=== PATIENT | male | born 1965 | race American Indian/Alaskan Native ===

== ENCOUNTER 2017-10-01 14:38 | Emergency (ER) | payer MEDICARE ==
[2017-10-01 15:54] VITALS: BP 149/84
[2017-10-01] MEDS ORDERED: FLEXERIL PO ONE (18:17)
[2017-10-01] MEDS ORDERED: MOTRIN PO ONE (18:17)
[2017-10-01] MEDS ORDERED: NORCO 5/325 PO ONE (18:17)
--- NOTE | 2017-10-01 19:58 | Emergency Department Report ---
ED Back Pain/Injury HPI - General Chief Complaint: Back Pain/Injury Stated Complaint: BACK AND ELBOW INJURY Time Seen by Provider: 10/01/17 18:09 Source: patient Mode of arrival: Ambulatory Limitations: No Limitations - History of Present Illness Initial Comments: PT states this morning between 0300 and 0400, he was awake and putting away his clothes. PT states he was kneeling in front of the dresser. The dresser had drawers open and started to tip forward. PT states he reached up to stop the dresser from falling. PT states he felt a pop in his R elbow. PT states he could not hold the dresser and it fell down, striking his low back. PT c/o R elbow and low back pain. PT denies head injury of loc MD Complaint: back injury -: Sudden, hour(s) Similar Symptoms Previously: No Place: home Severity scale (0 -10): 9 Quality: sharp Consistency: constant Improves With: none Worsens With: movement, walking Context: other (dresser fell on pt ) Associated Symptoms: denies: difficulty walking, difficulty urinating, incontinence, fever/chills, headaches, nausea/vomiting - Related Data Previous Rx's Medication Instructions Recorded Last Taken Type Acetaminophen/Codeine [Tylenol #3] 1 tab PO Q6H PRN #12 tab 10/01/17 Unknown Rx Ibuprofen [Motrin] 600 mg PO Q8H PRN #15 tablet 10/01/17 Unknown Rx methOCARBAMOL [Robaxin TAB] 500 mg PO Q6H PRN #15 tablet 10/01/17 Unknown Rx Allergies Allergy/AdvReac Type Severity Reaction Status Date / Time quetiapine [From Seroquel] Allergy Unknown Verified 10/01/17 15:50 ED Review of Systems ROS: Stated complaint: BACK AND ELBOW INJURY Other details as noted in HPI Comment: All other systems reviewed and negative Constitutional: denies: fever, malaise ENT: denies: congestion Respiratory: denies: cough Gastrointestinal: denies: abdominal pain, nausea, vomiting Musculoskeletal: back pain, joint swelling Skin: denies: change in color Neurological: denies: headache, weakness ED Past Medical Hx - Past Medical History Previous Medical History?: Yes Hx Psychiatric Treatment: Yes (bipolar) Additional medical history: Bronchitis - Surgical History Past Surgical History?: Yes Additional Surgical History: abd surgery - Social History Smoking Status: Current Every Day Smoker Substance Use Type: Alcohol, Cocaine - Medications Home Medications: Home Medications Medication Instructions Recorded Confirmed Last Taken Type Acetaminophen/Codeine [Tylenol #3] 1 tab PO Q6H PRN #12 tab 10/01/17 Unknown Rx Ibuprofen [Motrin] 600 mg PO Q8H PRN #15 tablet 10/01/17 Unknown Rx methOCARBAMOL [Robaxin TAB] 500 mg PO Q6H PRN #15 tablet 10/01/17 Unknown Rx ED Physical Exam - General Limitations: No Limitations General appearance: alert, in no apparent distress - Head Head exam: Present: atraumatic, normocephalic, normal inspection - Eye Eye exam: Present: normal appearance, PERRL. Absent: conjunctival injection - ENT ENT exam: Present: normal exam, mucous membranes moist, normal external ear exam - Neck Neck exam: Present: normal inspection, full ROM, other (no post mid line C- spine tenderness ) - Respiratory Respiratory exam: Present: normal lung sounds bilaterally. Absent: respiratory distress, wheezes, rales, rhonchi, chest wall tenderness, accessory muscle use - Cardiovascular Cardiovascular Exam: Present: regular rate, normal rhythm, normal heart sounds - GI/Abdominal GI/Abdominal exam: Present: soft. Absent: tenderness - Extremities Exam Extremities exam: Present: full ROM, tenderness - Expanded Upper Extremity Exam Left General: Present: normal inspection Right Shoulder Exam: Present: normal inspection, full ROM. Absent: tenderness Upper Arm exam: Present: normal inspection Elbow exam: Present: full ROM, tenderness, swelling, ecchymosis, tenderness over radial head. Absent: deformity, erythema - Back Exam Back exam: Present: normal inspection, full ROM, tenderness, paraspinal tenderness, vertebral tenderness (to L spine ). Absent: CVA tenderness (R), CVA tenderness (L) - Neurological Exam Neurological exam: Present: alert, oriented X3, CN II-XII intact, normal gait - Expanded Neurological Exam Expanded Patient oriented to: Present: person, place, time Speech: Present: fluid speech Best Eye Response ([place]): (4) open spontaneously Best Motor Response (Thadde[place]): (6) obeys commands Best Verbal Response (Thaddeus): (5) oriented [place] Total: 15 - Psychiatric Psychiatric exam: Present: normal affect, normal mood - Skin Skin exam: Present: warm, dry, intact ED Course Vital Signs 10/01/17 15:50 Temperature 98.3 F Pulse Rate 61 Respiratory 18 Rate Blood Pressure 149/84 O2 Sat by Pulse 100 Oximetry - Reevaluation(s) Reevaluation #1: 10/01/17 21:41 PT aware of XR results. PT states pain decreased s/p pain medication. PT has no questions at this time. - Pulse Oximetry Interpretation Digit-Finger Initial Pulse Oximetry Readin Actions Taken: none ED Medical Decision Making - Radiology Data Radiology results: report reviewed XR R elbow- NAP XR L spine - no fx, large osteophyte - Differential Diagnosis fracture, strain, crush injury Critical Care Time: No Critical care attestation.: If time is entered above; I have spent that time in minutes in the direct care of this critically ill patient, excluding procedure time. ED Disposition Clinical Impression: Right elbow pain, Acute low back pain due to trauma Disposition: TO HOME OR SELFCARE Is pt being admited?: No Does the pt Need Aspirin: No Condition: Stable Instructions: Acute Low Back Pain (ED), Elbow Sprain (ED), Back Pain (ED) Additional Instructions: Follow up with PCP in 3-5 days have your BP rechecked at follow up No driving or alcohol after taking Robaxin or tylenol #3 Prescriptions: Acetaminophen/Codeine [Tylenol #3] 1 tab PO Q6H PRN #12 tab PRN Reason: Pain , Severe (7-10) Ibuprofen [Motrin] 600 mg PO Q8H PRN #15 tablet PRN Reason: Pain methOCARBAMOL [Robaxin TAB] 500 mg PO Q6H PRN #15 tablet PRN Reason: Muscle Spasm Referrals: PRIMARY LUCIAN, [Primary Care Provider] - 3-5 Days ОЛЕГ DREW MD [Staff Physician] - 3-5 Days EDWIN CAMPO MD [Staff Physician] - 3-5 Days Forms: Work/School Release Form(ED) Time of Disposition: 21:44
--- NOTE | 2017-10-01 20:39 | XRay Report ---
FINAL REPORT PROCEDURE: XR ELBOW 3+V RT TECHNIQUE: Three views of the right elbow are obtained HISTORY: RIGHT ELBOW pain sp injury COMPARISON: No prior studies are available for comparison. FINDINGS: Mild arthritic changes are suspected. No fracture or dislocation is seen. No joint effusion is seen. IMPRESSION: Mild arthritic changes are seen but no fracture is seen.
--- NOTE | 2017-10-01 21:25 | XRay Report ---
FINAL REPORT EXAM: XR SPINE LUMBOSACRAL 2-3V HISTORY: LOWER BACK pain sp injury TECHNIQUE: AP, lateral and coned-down views of the lumbar spine PRIORS: None. FINDINGS: The vertebral body heights are well maintained. Mild disc space narrowing at L4-L5 and L5-S1 is present. Large osteophytes are present anteriorly at L4 and L5 and of bridging osteophyte to the right at L2-L3 is noted. The alignment is normal. No evidence for spondylolysis or spondylolisthesis is seen. Pedicles are intact bilaterally at all levels. The paraspinal soft tissues are unremarkable. IMPRESSION: No acute abnormality in the lumbar spine. Degenerative disc changes at L4 through S1 and large osteophytes as noted.
== END 2017-10-01 22:02 | disposition home or self-care (01) ==
LOC: ED 14:38
DX: M25.521 Pain in right elbow (principal); M54.5 Low back pain; F17.200 Nicotine dependence, unspecified, uncomplicated; F14.10 Cocaine abuse, uncomplicated
CPT/HCPCS: 72100

== ENCOUNTER 2019-02-23 15:20 | Outpatient (CLI) | payer MEDICARE | END 2019-02-23 15:21 | disposition home or self-care (01) | LOC: LAB 15:20 | PROVIDERS: ATTEND Psychiatry & Neurology Psychiatry | DX: F33.3 Major depressive disorder, recurrent, severe with psychotic symptoms (principal) | CPT/HCPCS: 36415; 84443 ==

== ENCOUNTER 2019-02-24 10:39 | Emergency (ER) | payer MEDICARE ==
[2019-02-24 11:04] VITALS: BP 138/83
--- NOTE | 2019-02-24 11:05 | Emergency Department Report ---
Chief Complaint: Chest Pain Stated Complaint: COLLAR BONE /ARM /CHEST PAIN Time Seen by Provider: 02/24/19 11:01 - HPI History of Present Illness: Pt presents with a cough that began a month ago. green mucus production. no fever, no night sweats. pain on right collar bone with a "knot" pt states with frequent coughing he had "popping" sensation of his right collarbone substernal CP (+) smoker MSE screening note: Focused history and physical exam performed. Due to findings the following was ordered: CP protocol, CXR ED Disposition for MSE Condition: Stable
--- NOTE | 2019-02-24 11:34 | XRay Report ---
Chest 2 views: History: Chest pain. Findings: Normal cardiomediastinal silhouette. Trachea is midline. No consolidation, pneumothorax or pleural effusion. Impression: No acute cardiopulmonary findings.
--- NOTE | 2019-02-24 11:49 | Emergency Department Report ---
Upper Respiratory HPI - HPI Chief Complaint: Chest Pain Stated Complaint: COLLAR BONE /ARM /CHEST PAIN Time Seen by Provider: 02/24/19 11:01 Duration: 1 month URI Symptoms: Rhinorrhea: Yes, Sore Throat: No, Ear Pain: No, Cough: Yes, Shortness of Breath: No, Sick Contacts: No, Unable to Take Fluids: No, Urine Output Abnormal: No, Listless Behavior: No Other History: This is a 53-year-old female nontoxic, well nourished in appearance, no acute signs of distress presents to the ED with c/o of productive cough, rhinorrhea, nasal congestion x1 month. Patient stated that when he coughes causes him to have chest pain. PAtient also stated felt a popping sensation to right clavicle area. Patient describes productive cough as yellow mucus production. Patient otherwise denies any chest pain during rest. Patient denies any sick contact. Patient denies any recent travels, long car, recent hospital stays. Patient denies any calf pain or calf tenderness. Patient denies any chest pain, short of breath, fever, chills, nausea, vomiting, hemoptysis, numbness, tingling, headache or stiff neck. Patient denies any significant PMH. - Home Meds and Allergies Home Medications: Previous Rx's Medication Instructions Recorded Last Taken Type Acetaminophen/Codeine [Tylenol #3] 1 tab PO Q6H PRN #12 tab 10/01/17 Unknown Rx Ibuprofen [Motrin] 600 mg PO Q8H PRN #15 tablet 10/01/17 Unknown Rx methOCARBAMOL [Robaxin TAB] 500 mg PO Q6H PRN #15 tablet 10/01/17 Unknown Rx Azithromycin [Zithromax Z-FAHAD] 250 mg PO DAILY #6 tablet 02/24/19 Unknown Rx Benzonatate [Tessalon Perle] 100 mg PO Q8H PRN #20 capsule 02/24/19 Unknown Rx Ibuprofen [Motrin] 600 mg PO Q8H PRN #20 tablet 02/24/19 Unknown Rx Prednisone [predniSONE 10 mg 10 mg PO .TAPER #1 tab.ds.pk 02/24/19 Unknown Rx (6-Day Pack, 21 Tabs)] Allergies/Adverse Reactions: Allergies Allergy/AdvReac Type Severity Reaction Status Date / Time quetiapine [From Seroquel] Allergy Unknown Verified 10/01/17 15:50 ED Review of Systems ROS: Stated complaint: COLLAR BONE /ARM /CHEST PAIN Other details as noted in HPI Constitutional: denies: chills, fever Eyes: denies: eye pain, eye discharge, vision change ENT: congestion. denies: ear pain, throat pain Respiratory: cough. denies: shortness of breath, wheezing Cardiovascular: denies: chest pain, palpitations Endocrine: no symptoms reported Gastrointestinal: denies: abdominal pain, nausea, diarrhea Genitourinary: denies: urgency, dysuria Musculoskeletal: denies: back pain, joint swelling, arthralgia Skin: denies: rash, lesions Neurological: denies: headache, weakness, paresthesias Psychiatric: denies: anxiety, depression Hematological/Lymphatic: denies: easy bleeding, easy bruising ED Past Medical Hx - Past Medical History Hx Psychiatric Treatment: Yes (bipolar) Additional medical history: Bronchitis, thyroid? - Surgical History Additional Surgical History: abd surgery - Social History Smoking Status: Current Every Day Smoker Substance Use Type: None - Medications Home Medications: Home Medications Medication Instructions Recorded Confirmed Last Taken Type Acetaminophen/Codeine [Tylenol #3] 1 tab PO Q6H PRN #12 tab 10/01/17 Unknown Rx Ibuprofen [Motrin] 600 mg PO Q8H PRN #15 tablet 10/01/17 Unknown Rx methOCARBAMOL [Robaxin TAB] 500 mg PO Q6H PRN #15 tablet 10/01/17 Unknown Rx Azithromycin [Zithromax Z-FAHAD] 250 mg PO DAILY #6 tablet 02/24/19 Unknown Rx Benzonatate [Tessalon Perle] 100 mg PO Q8H PRN #20 capsule 02/24/19 Unknown Rx Ibuprofen [Motrin] 600 mg PO Q8H PRN #20 tablet 02/24/19 Unknown Rx Prednisone [predniSONE 10 mg 10 mg PO .TAPER #1 tab.ds.pk 02/24/19 Unknown Rx (6-Day Pack, 21 Tabs)] ED Bronchiolitis Physical Exam - Exam General: Vital signs noted. No distress. Alert and acting appropriately. Neurologic: Alert and oriented, no deficits. Musculoskeletal: Unremarkable. ED Physical Exam - General Limitations: No Limitations General appearance: alert, in no apparent distress - Head Head exam: Present: atraumatic, normocephalic - Eye Eye exam: Present: normal appearance - ENT ENT exam: Present: normal exam, normal orophraynx - Neck Neck exam: Present: normal inspection, full ROM. Absent: tenderness, meningismus, lymphadenopathy - Respiratory Respiratory exam: Present: normal lung sounds bilaterally, chest wall tenderness (midsternum and right clavicle area). Absent: respiratory distress, wheezes, rales, rhonchi, stridor, accessory muscle use, decreased breath sounds, prolonged expiratory - Cardiovascular Cardiovascular Exam: Present: regular rate, normal rhythm, normal heart sounds. Absent: irregular rhythm, systolic murmur, diastolic murmur, rubs, gallop - Rectal Rectal exam: Present: deferred - Extremities Exam Extremities exam: Present: normal inspection, full ROM, normal capillary refill - Back Exam Back exam: Present: normal inspection, full ROM. Absent: tenderness, CVA tenderness (R), CVA tenderness (L), muscle spasm, paraspinal tenderness, vertebral tenderness, rash noted - Neurological Exam Neurological exam: Present: alert, oriented X3 - Psychiatric Psychiatric exam: Present: normal affect, normal mood - Skin Skin exam: Present: warm, dry, intact, normal color. Absent: rash ED Course Vital Signs 02/24/19 11:01 Temperature 98.6 F Pulse Rate 98 H Respiratory 18 Rate Blood Pressure 138/83 O2 Sat by Pulse 100 Oximetry - Reevaluation(s) Reevaluation #1: 02/24/19 11:49 Patient is speaking in full sentences with no signs of distress noted. ED Medical Decision Making - Lab Data Result diagrams: 02/24/19 12:03 02/24/19 12:03 - Medical Decision Making This is a 53-year-old male that presents with bronchitis and costochondritis. Patient is stable and was examined by me. Chest x-ray has been obtained and dictated by radiologist with normal exam. FELIPE and HEART score 0 pints. Wells criteria for DVT/SVT/PE 0 points. EKG normal sinus rhythm with no significant changes in ST. Patient is notified of the Xray report with no questions noted. Labs within normal limits. Negative troponin . Patient is notified of x-ray results with no questions noted. Due to patient having symptoms of upper respiratory infection and worsening I will treat patient empirically with zpak. Patient was instructed to increase hydration, rest and take Motrin for fever episodes. Vitals stable. Patient is nonfebrile and normal heart rate. Patient was instructed Follow-up with a primary care/clinical biochemist doctor in 3-5 days or if symptoms worsen and continue return to emergency room as soon as possible. A t time time of discharge, the patient does not seem toxic or ill in appearance. No acute signs of distress noted. Patient agrees to discharge treatment plan of care. No further questions noted by the patient. Critical care attestation.: If time is entered above; I have spent that time in minutes in the direct care of this critically ill patient, excluding procedure time. ED Disposition Clinical Impression: Bronchitis, Costochondritis Disposition: DC- TO HOME OR SELFCARE Is pt being admited?: No Does the pt Need Aspirin: No Condition: Stable Instructions: Acute Bronchitis (ED) Additional Instructions: Follow-up with a primary care/clinical biochemist doctor in 3-5 days or if symptoms worsen and continue return to emergency room as soon as possible. Prescriptions: Ibuprofen [Motrin] 600 mg PO Q8H PRN #20 tablet PRN Reason: Pain Prednisone [predniSONE 10 mg (6-Day Pack, 21 Tabs)] 10 mg PO .TAPER #1 tab.ds.pk Benzonatate [Tessalon Perle] 100 mg PO Q8H PRN #20 capsule PRN Reason: Cough Azithromycin [Zithromax Z-FAHAD] 250 mg PO DAILY #6 tablet Referrals: REEMA ESTEBAN MD [Primary Care Provider] - 3-5 Days PRIMARY MD LUCIAN [Referring] - 3-5 Days ОЛЕГ ROMO MD [Staff Physician] - 3-5 Days PAN COATS MD [Staff Physician] - 3-5 Days [facility] [Outside] - 3-5 Days Forms: Work/School Release Form(ED)
[2019-02-24 12:20] LABS: Basophils % (Auto) 0.6 % (0.0-1.8); Eosinophils % (Auto) 0.3 % (0.0-4.3); Hematocrit 43.1 % (35.5-45.6); Hemoglobin 14.3 gm/dl (11.8-15.2); Lymphocytes # (Auto) 2.1 K/mm3 (1.2-5.4); Lymphocytes % (Auto) 32.1 % (13.4-35.0); Mean Corpuscular HGB Conc 33 % (32-34); Mean Corpuscular Volume 93 fl (84-94); Monocytes # (Auto) 0.6 K/mm3 (0.0-0.8); Platelet Count 202 K/mm3 (140-440); Red Blood Count 4.66 M/mm3 (3.65-5.03); Red Cell Distribution Width 13.9 % (13.2-15.2)
[2019-02-24 12:31] LABS: INR 0.88 (0.87-1.13)
[2019-02-24 12:32] LABS: Partial Thromboplastin Time 25.5 Sec. (24.2-36.6)
--- NOTE | 2019-02-24 12:40 | XRay Report ---
RIGHT CLAVICLE TWO VIEWS: 02/24/19 10:39:00 CLINICAL: Right clavicle pain. FINDINGS: The clavicle is intact.No fracture or dislocation.Mild acromioclavicular joint arthritis. Normal glenohumeral joint. Normal soft tissues. IMPRESSION: Mild acromioclavicular joint arthritis and otherwise negative.
[2019-02-24 12:42] LABS: BUN/Creatinine Ratio 8; Blood Urea Nitrogen 11 mg/dL (9-20); Calcium 9.1 mg/dL (8.4-10.2); Hemolysis Index 7
== END 2019-02-24 13:21 | disposition home or self-care (01) ==
LOC: ED 10:39
DX: J40 Bronchitis, not specified as acute or chronic (principal); M94.0 Chondrocostal junction syndrome [Tietze]; F17.200 Nicotine dependence, unspecified, uncomplicated; Z88.8 Allergy status to other drugs, medicaments and biological substances
CPT/HCPCS: 36415; 71046; 80048; 84484; 85025; 85610; 85730; 93005; 93010; 99284

== ENCOUNTER 2019-12-02 10:50 | Emergency (ER) | payer MEDICARE ==
[2019-12-02 11:28] VITALS: BP 124/84
--- NOTE | 2019-12-02 11:29 | Emergency Department Report ---
HPI - General Chief Complaint: Allergic Reaction Time Seen by Provider: 12/02/19 11:28 ED Past Medical Hx - Past Medical History Hx Hypertension: Yes Hx Diabetes: Yes Hx Psychiatric Treatment: Yes (bipolar) Additional medical history: Bronchitis, thyroid? - Surgical History Additional Surgical History: abd surgery - Social History Smoking Status: Never Smoker Substance Use Type: None - Medications Home Medications: Home Medications Medication Instructions Recorded Confirmed Last Taken Type Acetaminophen/Codeine [Tylenol #3] 1 tab PO Q6H PRN #12 tab 10/01/17 Unknown Rx Ibuprofen [Motrin] 600 mg PO Q8H PRN #15 tablet 10/01/17 Unknown Rx methOCARBAMOL [Robaxin TAB] 500 mg PO Q6H PRN #15 tablet 10/01/17 Unknown Rx Azithromycin [Zithromax Z-FAHAD] 250 mg PO DAILY #6 tablet 02/24/19 Unknown Rx Benzonatate [Tessalon Perle] 100 mg PO Q8H PRN #20 capsule 02/24/19 Unknown Rx Ibuprofen [Motrin] 600 mg PO Q8H PRN #20 tablet 02/24/19 Unknown Rx Prednisone [predniSONE 10 mg 10 mg PO .TAPER #1 tab.ds.pk 02/24/19 Unknown Rx (6-Day Pack, 21 Tabs)] ED Review of Systems ROS: Stated complaint: REACTION TO MEDICATION Other details as noted in HPI Physical Exam - Physical Exam Vital Signs: Vital Signs 12/02/19 11:27 Temperature 98.3 F Pulse Rate 64 Respiratory 20 Rate Blood Pressure 124/84 O2 Sat by Pulse 98 Oximetry ED Course Vital Signs 12/02/19 11:27 Temperature 98.3 F Pulse Rate 64 Respiratory 20 Rate Blood Pressure 124/84 O2 Sat by Pulse 98 Oximetry Critical care attestation.: If time is entered above; I have spent that time in minutes in the direct care of this critically ill patient, excluding procedure time. ED Disposition Condition: Stable
--- NOTE | 2019-12-02 11:35 | Event Note ---
ED Screening Note ED Screening Note: pt recently dc [facility] for polys[facility] he is now in outpt tx he wakes every am with preauricular lymph node swelling he thinks its med did not see psych md who gave him rx. billing department supervisor at outpt tx sent not available no davy/arb co for allergic rx involving head/neck This initial assessment/diagnostic orders/clinical plan/treatment(s) is/are subject to change based on patients health status, clinical progression and re- assessment by fellow clinical providers in the ED. Further treatment and workup at subsequent clinical providers discretion. Patient/guardian urged not to elope from the ED as their condition may be serious if not clinically assessed and managed. Initial orders include: basic labs eval acc
[2019-12-02 13:22] LABS: Basophils % (Auto) 0.3 % (0.0-1.8); Eosinophils # (Auto) 0.1 K/mm3 (0.0-0.4); Eosinophils % (Auto) 1.2 % (0.0-4.3); Hematocrit 44.2 % (35.5-45.6); Hemoglobin 14.7 gm/dl (11.8-15.2); Lymphocytes # (Auto) 1.8 K/mm3 (1.2-5.4); Lymphocytes % (Auto) 30.6 % (13.4-35.0); Mean Corpuscular HGB Conc 33 % (32-34); Mean Corpuscular Volume 91 fl (84-94); Monocytes # (Auto) 0.9 K/mm3 (0.0-0.8); Monocytes % (Auto) 14.3 % (0.0-7.3); Platelet Count 185 K/mm3 (140-440); Red Blood Count 4.88 M/mm3 (3.65-5.03); Red Cell Distribution Width 13.4 % (13.2-15.2)
[2019-12-02 13:49] LABS: Alanine Aminotransferase 19 units/L (7-56); Albumin 3.9 g/dL (3.9-5); BUN/Creatinine Ratio 11; Blood Urea Nitrogen 13 mg/dL (9-20); Hemolysis Index 14
--- NOTE | 2019-12-02 15:12 | Emergency Department Report ---
ED General Adult HPI - General Chief complaint: Allergic Reaction Stated complaint: REACTION TO MEDICATION Time Seen by Provider: 12/02/19 11:28 Source: patient Mode of arrival: Ambulatory Limitations: No Limitations - History of Present Illness Initial comments: She is a 54-year-old gentleman who is complaining of pain and swelling at the TMJ bilaterally. Patient states for the last week he's been waking up with swelling to the bilateral preauricular area. Patient believes this is due to Depakote which she takes for bipolar disorder. Patient also has a history of diabetes and hypertension. Patient states noticed swelling goes down but has been present for the last 48 hours. He denies any fevers chills cough or congestion nausea vomiting. Does have a popping sensation in the bilateral ears. Patient has increased pain when tries to open the mouth. Pain is 6 out of 10 in severity. - Related Data Previous Rx's Medication Instructions Recorded Last Taken Type predniSONE [Deltasone] 10 mg PO .TAPER #21 tab 12/02/19 Unknown Rx traMADoL [Ultram] 50 mg PO Q6HR PRN #12 tablet 12/02/19 Unknown Rx Allergies Allergy/AdvReac Type Severity Reaction Status Date / Time quetiapine [From Seroquel] Allergy Unknown Verified 12/02/19 11:28 ED Review of Systems ROS: Stated complaint: REACTION TO MEDICATION Other details as noted in HPI Comment: All other systems reviewed and negative ED Past Medical Hx - Past Medical History Hx Hypertension: Yes Hx Diabetes: Yes Hx Psychiatric Treatment: Yes (bipolar) Additional medical history: Bronchitis, thyroid? - Surgical History Additional Surgical History: abd surgery - Social History Smoking Status: Never Smoker Substance Use Type: None - Medications Home Medications: Home Medications Medication Instructions Recorded Confirmed Last Taken Type predniSONE [Deltasone] 10 mg PO .TAPER #21 tab 12/02/19 Unknown Rx traMADoL [Ultram] 50 mg PO Q6HR PRN #12 tablet 12/02/19 Unknown Rx ED Physical Exam - General Limitations: No Limitations General appearance: alert, in no apparent distress - Head Head exam: Present: atraumatic, normocephalic - Expanded Head Exam Expanded 1 - Noticeable preauricular swelling without warmth or erythema. Skin does feel firm and indurated. There is no evidence of any abscess or fluctuance. No obvious lymph nodes on palpation. 2 - Noticeable preauricular swelling without warmth or erythema. Skin does fee l firm and indurated. There is no evidence of any abscess or fluctuance. No obvious lymph nodes on palpation. - Eye Eye exam: Present: normal appearance - ENT ENT exam: Present: mucous membranes moist - Neck Neck exam: Present: normal inspection - Respiratory Respiratory exam: Present: normal lung sounds bilaterally. Absent: respiratory distress - Cardiovascular Cardiovascular Exam: Present: regular rate, normal rhythm. Absent: systolic murmur, diastolic murmur, rubs, gallop - GI/Abdominal GI/Abdominal exam: Present: soft, normal bowel sounds - Rectal Rectal exam: Present: deferred - Extremities Exam Extremities exam: Present: normal inspection - Back Exam Back exam: Present: normal inspection - Neurological Exam Neurological exam: Present: alert, oriented X3 - Psychiatric Psychiatric exam: Present: normal affect, normal mood - Skin Skin exam: Present: warm, dry, intact, normal color. Absent: rash ED Course Vital Signs 12/02/19 11:27 Temperature 98.3 F Pulse Rate 64 Respiratory 20 Rate Blood Pressure 124/84 O2 Sat by Pulse 98 Oximetry ED Medical Decision Making - Lab Data Result diagrams: 12/02/19 12:44 12/02/19 12:44 - Medical Decision Making Because of the degree of swelling and possibility that the swelling is from lymph node patient's white count was checked to make sure patient was not having a blast crisis for initial presentation of leukemia or lymphoma. Patient's white count is within normal limits making these less likely. No obvious palpable lymph nodes found. Patient does have a high degree of swelling. Patient started on a short course of steroids and given internal medicine for follow-up. 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 Critical care attestation.: If time is entered above; I have spent that time in minutes in the direct care of this critically ill patient, excluding procedure time. ED Disposition Clinical Impression: TMJ inflammation Disposition: DC-01 TO HOME OR SELFCARE Is pt being admited?: No Does the pt Need Aspirin: No Condition: Stable Instructions: Temporomandibular Disorder (ED) Referrals: SUSANNA PIERRE DO [Staff Physician] - 3-5 Days Time of Disposition: 15:12
== END 2019-12-02 15:50 | disposition home or self-care (01) ==
LOC: ED 10:50
DX: M26.601 Right temporomandibular joint disorder, unspecified (principal); I10 Essential (primary) hypertension; E11.9 Type 2 diabetes mellitus without complications; F31.9 Bipolar disorder, unspecified; Z98.890 Other specified postprocedural states; Z79.899 Other long term (current) drug therapy; Z88.8 Allergy status to other drugs, medicaments and biological substances
CPT/HCPCS: 36415; 80053; 85025

== ENCOUNTER 2019-12-13 10:33 | Outpatient (CLI) | payer MEDICARE | END 2019-12-13 10:34 | disposition home or self-care (01) | LOC: LAB 10:33 | PROVIDERS: ATTEND Psychiatry & Neurology Psychiatry | DX: F25.0 Schizoaffective disorder, bipolar type (principal); E11.9 Type 2 diabetes mellitus without complications | CPT/HCPCS: 36415; 84443 ==

== ENCOUNTER 2019-12-13 10:49 | Emergency (ER) | payer MEDICARE ==
[2019-12-13 10:54] VITALS: BP 161/94
--- NOTE | 2019-12-13 12:58 | Emergency Department Report ---
ED Shortness of Breath HPI - General Chief Complaint: Dyspnea/Respdistress Stated Complaint: ARVIN/PANIC ATTACK Time Seen by Provider: 12/13/19 12:27 Source: patient Mode of arrival: Ambulatory Limitations: No Limitations - History of Present Illness Initial Comments: Visit very pleasant 54-year-old male presents the emergency department with a chief complaint of an episode of shortness of breath that started last night. He reports this has since resolved. He reports associated nasal congestion, bleeding from his left nostril, facial pressure. He denies any cough, chest pain, pain while breathing, hemoptysis, fever, chills, night sweats, dizziness, nausea, vomiting, diarrhea or any other associated symptoms. He does report he has been having some panic attacks all weekend is unsure of what may have triggered this. She reports a past medical history of bipolar, hypertension, diabetes and hypothyroidism. He also reports some lower extremity swelling bilaterally. He states this has happened many times in the past secondary to his medications. MD Complaint: shortness of breath, anxiety - Related Data Previous Rx's Medication Instructions Recorded Last Taken Type predniSONE [Deltasone] 10 mg PO .TAPER #21 tab 12/02/19 Unknown Rx traMADoL [Ultram] 50 mg PO Q6HR PRN #12 tablet 12/02/19 Unknown Rx Allergies Allergy/AdvReac Type Severity Reaction Status Date / Time quetiapine [From Seroquel] Allergy Unknown Verified 12/02/19 11:28 ED Review of Systems ROS: Stated complaint: ARVIN/PANIC ATTACK Other details as noted in HPI Comment: All other systems reviewed and negative Constitutional: denies: chills, fever Eyes: denies: eye pain, eye discharge, vision change ENT: epistaxis, congestion. denies: ear pain, throat pain Respiratory: shortness of breath. denies: cough, wheezing Cardiovascular: denies: chest pain, palpitations Endocrine: no symptoms reported Gastrointestinal: denies: abdominal pain, nausea, diarrhea Genitourinary: denies: urgency, dysuria Musculoskeletal: denies: back pain, joint swelling, arthralgia Skin: denies: rash, lesions Neurological: denies: headache, weakness, paresthesias Psychiatric: anxiety. denies: depression Hematological/Lymphatic: denies: easy bleeding, easy bruising ED Past Medical Hx - Past Medical History Previous Medical History?: Yes Hx Hypertension: Yes Hx Diabetes: Yes Hx Psychiatric Treatment: Yes (bipolar) Additional medical history: Bronchitis, hypothyroidism - Surgical History Past Surgical History?: Yes Additional Surgical History: abd surgery - Social History Smoking Status: Current Every Day Smoker Substance Use Type: Alcohol, Cocaine - Medications Home Medications: Home Medications Medication Instructions Recorded Confirmed Last Taken Type predniSONE [Deltasone] 10 mg PO .TAPER #21 tab 12/02/19 Unknown Rx traMADoL [Ultram] 50 mg PO Q6HR PRN #12 tablet 12/02/19 Unknown Rx ED Physical Exam - General Limitations: No Limitations General appearance: alert, in no apparent distress - Head Head exam: Present: atraumatic, normocephalic - Eye Eye exam: Present: normal appearance, PERRL, EOMI - ENT ENT exam: Present: normal exam, normal orophraynx, mucous membranes moist. Absent: normal external ear exam - Neck Neck exam: Present: normal inspection, full ROM. Absent: tenderness, meningismus - Respiratory Respiratory exam: Present: normal lung sounds bilaterally. Absent: respiratory distress, wheezes, rales, rhonchi, stridor (mild erythema to the right external auditory canal) - Cardiovascular Cardiovascular Exam: Present: regular rate, normal rhythm, normal heart sounds. Absent: systolic murmur, diastolic murmur, rubs, gallop - GI/Abdominal GI/Abdominal exam: Present: soft, normal bowel sounds. Absent: distended, tenderness, guarding, rebound, rigid - Rectal Rectal exam: Present: deferred - Extremities Exam Extremities exam: Present: normal inspection, full ROM. Absent: tenderness (no posterior calf tenderness, negative Homans sign bilaterally, trace bilateral pitting edema) - Back Exam Back exam: Present: normal inspection, full ROM. Absent: tenderness, CVA tenderness (R), CVA tenderness (L) - Neurological Exam Neurological exam: Present: alert, oriented X3, normal gait - Psychiatric Psychiatric exam: Present: normal affect, normal mood - Skin Skin exam: Present: warm, dry, intact, normal color. Absent: rash ED Course Vital Signs 12/13/19 10:52 Temperature 98.6 F Pulse Rate 77 Respiratory 18 Rate Blood Pressure 161/94 O2 Sat by Pulse 96 Oximetry ED Medical Decision Making - Medical Decision Making Patient is nontoxic in no acute distress. Vital signs are stable other than he is slightly hypertensive. Patient has a low risk by well's criteria for PE. The patient was reporting some shortness of breath with some lower extremity edema. He denied any history of heart failure. His lungs were clear. I did recommend lab work including CBC, CMP, BNP, troponin's, chest x-ray and EKG to work this up. The patient initially agreed however he got a text from somebody urgently happily the ER. He understood that leaving without this workup he could potentially have a life-threatening condition such as a new onset of congestive heart failure, MT, pulmonary embolism, pneumonia, pulmonary edema. This is nonexclusive list. The patient understood that by leaving he was risking his life and could result in or permanent disability. He is competent to make this decision. He signed AMA paperwork and decided to leave AGAINST MEDICAL ADVICE. - Differential Diagnosis new-onset CHF, NSTEMI, PE, Pneumonia Critical care attestation.: If time is entered above; I have spent that time in minutes in the direct care of this critically ill patient, excluding procedure time. ED Disposition Clinical Impression: Shortness of breath Disposition: DC-07 LEFT AGAINST MED ADVICE Is pt being admited?: No Condition: Undetermined Referrals: PRIMARY CARE, [Primary Care Provider] - 3-5 Days Forms: AMA Form Time of Disposition: 12:58
== END 2019-12-13 12:55 | disposition left against medical advice (07) ==
LOC: ED 10:49
DX: R06.02 Shortness of breath (principal); I10 Essential (primary) hypertension; E11.9 Type 2 diabetes mellitus without complications; E03.9 Hypothyroidism, unspecified; F31.9 Bipolar disorder, unspecified; F10.10 Alcohol abuse, uncomplicated; F17.200 Nicotine dependence, unspecified, uncomplicated; F14.10 Cocaine abuse, uncomplicated; Z98.890 Other specified postprocedural states; Z88.8 Allergy status to other drugs, medicaments and biological substances; Z79.899 Other long term (current) drug therapy
CPT/HCPCS: 36415; 84443; 99282

== ENCOUNTER 2020-09-05 11:01 | Emergency (ER) | payer MEDICARE, SELFPAY ==
[2020-09-05] MEDS ORDERED: MAGNESIUM HYDROXIDE (MOM) ORAL LIQD UDC PO PRN (12:51)
[2020-09-05] MEDS ORDERED: ALUM-MAG HYDROXIDE-SIMETHICONE 200-200-20MG/5ML ORAL LIQD 30 ML PO PRN (12:51)
[2020-09-05] MEDS ORDERED: ACETAMINOPHEN 325 MG TAB PO PRN (12:51)
[2020-09-05 13:17] LABS: Bilirubin,Urine NEG (Negative); Blood,Urine NEG (Negative); Color,Urine Yellow (Yellow); Mucus,Urine 3+ /HPF; Protein,Urine <15 mg/dL mg/dL (Negative)
[2020-09-05 13:18] LABS: Hematocrit 42.9 % (35.5-45.6); Hemoglobin 14.2 gm/dl (11.8-15.2); Mean Corpuscular HGB Conc 33 % (32-34); Mean Corpuscular Volume 90 fl (84-94); Platelet Count 272 K/mm3 (140-440); Red Blood Count 4.78 M/mm3 (3.65-5.03); Red Cell Distribution Width 15.5 % (13.2-15.2)
[2020-09-05 13:20] LABS: Amphetamine Screen,Urine Negative; Benzodiazepines Screen,Urine Negative; Methadone Screen,Urine Negative; Opiate Screen,Urine Negative
[2020-09-05 13:32] LABS: BUN/Creatinine Ratio 8; Blood Urea Nitrogen 9 mg/dL (9-20); Calcium 8.7 mg/dL (8.4-10.2); Hemolysis Index 11
[2020-09-05 13:36] LABS: Cannabinoid Screen,Urine Positive; Cocaine Screen,Urine Positive
[2020-09-05 13:54] LABS: Basophils % (Manual) 0 % (0.0-1.8); Eosinophils % (Manual) 0 % (0.0-4.3); Platelet Estimate Consistent w Auto; RBC Morphology Normal; Total Cells Counted 100; Toxic Vacuolation Few
--- NOTE | 2020-09-05 14:53 | Emergency Department Report ---
<LAUREN PHILLIPS - Last Filed: 09/06/20 18:02> ED Psych HPI - General Chief Complaint: Psych Stated Complaint: MH Time Seen by Provider: 09/05/20 12:50 - Related Data Home Medications Medication Instructions Recorded Confirmed Last Taken Depakote ER 500 mg PO BID 09/05/20 09/07/20 Unknown Gabapentin 600 mg PO BID 09/05/20 09/07/20 Unknown Lisinopril 10 mg PO DAILY 09/05/20 09/07/20 Unknown RisperDAL 0.5 mg PO BID 09/05/20 09/07/20 Unknown Wellbutrin 150 mg PO DAILY 09/05/20 09/07/20 Unknown Prazosin 1 mg PO HS 09/07/20 09/07/20 Unknown Previous Rx's Medication Instructions Recorded Last Taken Type predniSONE [Deltasone] 10 mg PO .TAPER #21 tab 12/02/19 Unknown Rx traMADoL [Ultram] 50 mg PO Q6HR PRN #12 tablet 12/02/19 Unknown Rx Allergies Allergy/AdvReac Type Severity Reaction Status Date / Time quetiapine [From Seroquel] Allergy Unknown Verified 12/02/19 11:28 ED Past Medical Hx - Medications Home Medications: Home Medications Medication Instructions Recorded Confirmed Last Taken Type predniSONE [Deltasone] 10 mg PO .TAPER #21 tab 12/02/19 Unknown Rx traMADoL [Ultram] 50 mg PO Q6HR PRN #12 tablet 12/02/19 09/07/20 Unknown Rx Depakote ER 500 mg PO BID 09/05/20 09/07/20 Unknown History Gabapentin 600 mg PO BID 09/05/20 09/07/20 Unknown History Lisinopril 10 mg PO DAILY 09/05/20 09/07/20 Unknown History RisperDAL 0.5 mg PO BID 09/05/20 09/07/20 Unknown History Wellbutrin 150 mg PO DAILY 09/05/20 09/07/20 Unknown History Prazosin 1 mg PO HS 09/07/20 09/07/20 Unknown History ED Medical Decision Making - Lab Data Result diagrams: 09/05/20 13:06 09/05/20 13:06 - Medical Decision Making Patient discharged for [facility] ED Disposition Clinical Impression: Cocaine dependence, Bipolar disorder, Suicidal ideation, Schizophrenia Disposition: [id number]/TX-[id number] PSY HOSP/PSY UNIT Is pt being admited?: No Condition: Stable Referrals: PRIMARY CARE, [Primary Care Provider] - 3-5 Days Time of Disposition: 18:03 (Discharged to [facility]) <VERNA TORIBIO - Last Filed: 09/09/20 16:32> ED Psych HPI - General Source: patient Mode of arrival: Wheelchair - History of Present Illness Initial Comments: Chief complaint: I hear voices telling me to kill myself HPI: This is a 55-year-old male with history of bipolar disorder, schizophrenia and cocaine dependence who presents with auditory hallucinations and suicidal ideation. He hears voices telling him that he is "no good". Voices are telling him to kill himself. He took extra psychiatric medication in order to calm his symptoms. He did not have any intention to harm, however he has persistent thoughts of suicidality. He has had previous suicide attempts. Last use of cocaine a few days ago. Symptoms are so incapacitating that he is unable to work. He works for a [employer] company. Complaint: suicidal ideation, feels depressed -: Gradual, days(s) (Several days) Associated Psychiatric Symptoms: depression, suicidal ideation, racing thoughts, auditory hallucinations History of same: Yes Quality: constant Improves With: none Worsens With: drug use Context: recent drug abuse Associated Symptoms: denies other symptoms Treatments Prior to Arrival: none If Self Harm: admits thoughts of ED Review of Systems ROS: Stated complaint: MH Other details as noted in HPI Comment: All other systems reviewed and negative Constitutional: denies: fever, malaise Respiratory: denies: cough Cardiovascular: denies: chest pain Gastrointestinal: denies: abdominal pain, nausea, vomiting Psychiatric: depression, suicidal thoughts ED Past Medical Hx - Past Medical History Previous Medical History?: Yes Hx Hypertension: Yes Hx Diabetes: Yes Hx Psychiatric Treatment: Yes (bipolar) Additional medical history: Bronchitis, hypothyroidism - Surgical History Past Surgical History?: Yes Additional Surgical History: abd surgery - Social History Smoking Status: Current Some Day Smoker Substance Use Type: Alcohol, Cocaine ED Physical Exam - General Limitations: No Limitations General appearance: alert, in no apparent distress - Head Head exam: Present: atraumatic, normocephalic - Eye Eye exam: Present: normal appearance - ENT ENT exam: Present: mucous membranes moist - Neck Neck exam: Present: normal inspection, full ROM - Respiratory Respiratory exam: Present: normal lung sounds bilaterally. Absent: respiratory distress, wheezes, rales, rhonchi - Cardiovascular Cardiovascular Exam: Present: regular rate, normal rhythm, normal heart sounds. Absent: systolic murmur, diastolic murmur, rubs, gallop - GI/Abdominal GI/Abdominal exam: Present: soft, normal bowel sounds. Absent: distended, tend erness, guarding, rebound - Rectal Rectal exam: Present: deferred - Extremities Exam Extremities exam: Present: normal inspection - Neurological Exam Neurological exam: Present: alert, oriented X3 - Psychiatric Psychiatric exam: Present: normal affect, depressed - Skin Skin exam: Present: warm, dry, intact, normal color. Absent: rash ED Course Vital Signs 09/05/20 09/05/20 09/05/20 11:26 12:03 16:55 Temperature 97.7 F Pulse Rate 44 L 63 Respiratory 18 18 18 Rate Blood Pressure 131/72 Blood Pressure 117/84 [Right] O2 Sat by Pulse 99 99 98 Oximetry 09/05/20 09/05/20 09/06/20 19:30 20:00 02:00 Temperature 98.4 F 97.8 F Pulse Rate 58 L 55 L Respiratory 16 17 16 Rate Blood Pressure Blood Pressure 114/79 120/75 [Right] O2 Sat by Pulse 99 97 99 Oximetry 09/06/20 09/06/20 09/06/20 08:00 14:13 15:13 Temperature 97.8 F Pulse Rate 61 Respiratory 20 16 16 Rate Blood Pressure Blood Pressure 143/88 [Right] O2 Sat by Pulse 98 Oximetry ED Medical Decision Making - Lab Data Result diagrams: 09/05/20 13:06 09/05/20 13:06 Laboratory Results - last 24 hr 09/05/20 09/05/20 09/05/20 13:06 13:06 13:06 WBC 6.2 RBC 4.78 Hgb 14.2 Hct 42.9 MCV 90 MCH 30 MCHC 33 RDW 15.5 H Plt Count 272 Add Manual Diff Complete Total Counted 100 Seg Neuts % (Manual) 76.0 H Band Neutrophils % 0 Lymphocytes % (Manual) 19.0 Reactive Lymphs % (Man) 0 Monocytes % (Manual) 5.0 Eosinophils % (Manual) 0 Basophils % (Manual) 0 Metamyelocytes % 0 Myelocytes % 0 Promyelocytes % 0 Blast Cells % 0 Nucleated RBC % Not Reportable Seg Neutrophils # Man 4.7 Band Neutrophils # 0.0 Lymphocytes # (Manual) 1.2 Abs React Lymphs (Man) 0.0 Monocytes # (Manual) 0.3 Eosinophils # (Manual) 0.0 Basophils # (Manual) 0.0 Metamyelocytes # 0.0 Myelocytes # 0.0 Promyelocytes # 0.0 Blast Cells # 0.0 WBC Morphology Not Reportable Hypersegmented Neuts Not Reportable Hyposegmented Neuts Not Reportable Hypogranular Neuts Not Reportable Smudge Cells Not Reportable Toxic Granulation Not Reportable Toxic Vacuolation Few Dohle Bodies Not Reportable Pelger-Huet Anomaly Not Reportable Grace Rods Not Reportable Platelet Estimate Consistent w auto Clumped Platelets Not Reportable Plt Clumps, EDTA Not Reportable Large Platelets Not Reportable Giant Platelets Not Reportable Platelet Satelliting Not Reportable Plt Morphology Comment Not Reportable RBC Morphology Normal Dimorphic RBCs Not Reportable Polychromasia Not Reportable Hypochromasia Not Reportable Poikilocytosis Not Reportable Anisocytosis Not Reportable Microcytosis Not Reportable Macrocytosis Not Reportable Spherocytes Not Reportable Pappenheimer Bodies Not Reportable Sickle Cells Not Reportable Target Cells Not Reportable Tear Drop Cells Not Reportable Ovalocytes Not Reportable Helmet Cells Not Reportable [place] Bodies Not Reportable Tarrs Rings Not Reportable [place] Cells Not Reportable Bite Cells Not Reportable Crenated Cell Not Reportable Elliptocytes Not Reportable Acanthocytes (Spur) Not Reportable Rouleaux Not Reportable Hemoglobin C Crystals Not Reportable Schistocytes Not Reportable Malaria parasites Not Reportable Mir Bodies Not Reportable Hem Pathologist Commnt No Sodium 142 Potassium 4.1 Chloride 106.1 Carbon Dioxide 23 Anion Gap 17 BUN 9 Creatinine 1.2 Estimated GFR > 60 BUN/Creatinine Ratio 8 Glucose 91 Calcium 8.7 Urine Color Urine Turbidity Urine pH Ur Specific Encinal Urine Protein Urine Glucose (UA) Urine Ketones Urine Blood Urine Nitrite Urine Bilirubin Urine Urobilinogen Ur Leukocyte Esterase Urine WBC (Auto) Urine RBC (Auto) U Epithel Cells (Auto) Urine Mucus Salicylates < 0.3 L Urine Opiates Screen Urine Methadone Screen Acetaminophen Ur Barbiturates Screen Ur Phencyclidine Scrn Ur Amphetamines Screen U Benzodiazepines Scrn Urine Cocaine Screen U Marijuana (THC) Screen Drugs of Abuse Note Plasma/Serum Alcohol 09/05/20 09/05/20 09/05/20 13:06 13:06 Unknown WBC RBC Hgb Hct MCV MCH MCHC RDW Plt Count Add Manual Diff Total Counted Seg Neuts % (Manual) Band Neutrophils % Lymphocytes % (Manual) Reactive Lymphs % (Man) Monocytes % (Manual) Eosinophils % (Manual) Basophils % (Manual) Metamyelocytes % Myelocytes % Promyelocytes % Blast Cells % Nucleated RBC % Seg Neutrophils # Man Band Neutrophils # Lymphocytes # (Manual) Abs React Lymphs (Man) Monocytes # (Manual) Eosinophils # (Manual) Basophils # (Manual) Metamyelocytes # Myelocytes # Promyelocytes # Blast Cells # WBC Morphology Hypersegmented Neuts Hyposegmented Neuts Hypogranular Neuts Smudge Cells Toxic Granulation Toxic Vacuolation Dohle Bodies Pelger-Huet Anomaly Grace Rods Platelet Estimate Clumped Platelets Plt Clumps, EDTA Large Platelets Giant Platelets Platelet Satelliting Plt Morphology Comment RBC Morphology Dimorphic RBCs Polychromasia Hypochromasia Poikilocytosis Anisocytosis Microcytosis Macrocytosis Spherocytes Pappenheimer Bodies Sickle Cells Target Cells Tear Drop Cells Ovalocytes Helmet Cells Gomez[place] Bodies Tarrs Rings [place] Cells Bite Cells Crenated Cell Elliptocytes Acanthocytes (Spur) Rouleaux Hemoglobin C Crystals Schistocytes Malaria parasites Mir Bodies Hem Pathologist Commnt Sodium Potassium Chloride Carbon Dioxide Anion Gap BUN Creatinine Estimated GFR BUN/Creatinine Ratio Glucose Calcium Urine Color Yellow Urine Turbidity Clear Urine pH 5.0 Ur Specific Encinal 1.025 Urine Protein <15 mg/dl Urine Glucose (UA) Neg Urine Ketones Neg Urine Blood Neg Urine Nitrite Neg Urine Bilirubin Neg Urine Urobilinogen 2.0 Ur Leukocyte Esterase Neg Urine WBC (Auto) 3.0 Urine RBC (Auto) 2.0 U Epithel Cells (Auto) < 1.0 Urine Mucus 3+ Salicylates Urine Opiates Screen Urine Methadone Screen Acetaminophen 5.0 L Ur Barbiturates Screen Ur Phencyclidine Scrn Ur Amphetamines Screen U Benzodiazepines Scrn Urine Cocaine Screen U Marijuana (THC) Screen Drugs of Abuse Note Plasma/Serum Alcohol < 0.01 09/05/20 Unknown WBC RBC Hgb Hct MCV MCH MCHC RDW Plt Count Add Manual Diff Total Counted Seg Neuts % (Manual) Band Neutrophils % Lymphocytes % (Manual) Reactive Lymphs % (Man) Monocytes % (Manual) Eosinophils % (Manual) Basophils % (Manual) Metamyelocytes % Myelocytes % Promyelocytes % Blast Cells % Nucleated RBC % Seg Neutrophils # Man Band Neutrophils # Lymphocytes # (Manual) Abs React Lymphs (Man) Monocytes # (Manual) Eosinophils # (Manual) Basophils # (Manual) Metamyelocytes # Myelocytes # Promyelocytes # Blast Cells # WBC Morphology Hypersegmented Neuts Hyposegmented Neuts Hypogranular Neuts Smudge Cells Toxic Granulation Toxic Vacuolation Dohle Bodies Pelger-Huet Anomaly Grace Rods Platelet Estimate Clumped Platelets Plt Clumps, EDTA Large Platelets Giant Platelets Platelet Satelliting Plt Morphology Comment RBC Morphology Dimorphic RBCs Polychromasia Hypochromasia Poikilocytosis Anisocytosis Microcytosis Macrocytosis Spherocytes Pappenheimer Bodies Sickle Cells Target Cells Tear Drop Cells Ovalocytes Helmet Cells [place] Bodies Tarrs Rings [place] Cells Bite Cells Crenated Cell Elliptocytes Acanthocytes (Spur) Rouleaux Hemoglobin C Crystals Schistocytes Malaria parasites Mir Bodies Hem Pathologist Commnt Sodium Potassium Chloride Carbon Dioxide Anion Gap BUN Creatinine Estimated GFR BUN/Creatinine Ratio Glucose Calcium Urine Color Urine Turbidity Urine pH Ur Specific Encinal Urine Protein Urine Glucose (UA) Urine Ketones Urine Blood Urine Nitrite Urine Bilirubin Urine Urobilinogen Ur Leukocyte Esterase Urine WBC (Auto) Urine RBC (Auto) U Epithel Cells (Auto) Urine Mucus Salicylates Urine Opiates Screen Negative Urine Methadone Screen Negative Acetaminophen Ur Barbiturates Screen Negative Ur Phencyclidine Scrn Negative Ur Amphetamines Screen Negative U Benzodiazepines Scrn Negative Urine Cocaine Screen Positive U Marijuana (THC) Screen Positive Drugs of Abuse Note Disclamer Plasma/Serum Alcohol - Medical Decision Making Mr. Sánchez is a 55-year-old male with history of schizophrenia, bipolar disorder and cocaine dependence who presents with auditory loose Nations with command to harm himself. Due to incapacitating symptoms and risk of harm, patient has been placed on involuntary hold using 1013 form. Patient has had previous suicide attempt. I have reviewed labs obtained. CBC chemistry serum toxicology all within normal limits. Urinalysis without evidence of infection. UDS screen positive for cocaine and marijuana. Patient is medically clear for psychiatric care. Critical care attestation.: If time is entered above; I have spent that time in minutes in the direct care of this critically ill patient, excluding procedure time. ED Disposition Is pt being admited?: No Does the pt Need Aspirin: No
[2020-09-06 10:50] VITALS: BP 143/88
--- NOTE | 2020-09-06 12:29 | Consultation ---
History of Present Illness - Reason for Consult Consult date: 09/06/20 Reason for consult: suicidal, hallucinating - History of Present Psychiatric Illness Quentin Sánchez is a 55y/o male patient who presented to the ER for suicidal thoughts and hallucinations. During my interview with the patient he is rude, and uncooperative. He is not forthcoming. The patient states "I'm tried of people asking me the same sh*t." He consistently denies any drug use although urine positive for cocaine and THC. He says "I hear voices telling me to kill myself and other people." PAST PSYCHIATRIC HISTORY Diagnoses: Schizophrenia, bipolar Suicide attempts or Self-harm behavior: refused to answer Prior psychiatric hospitalizations: refused to answer Substance Abuse history: Denies Previous psychiatric medications tried: risperidone, wellbutrin, depakote Outpatient treatment: refused to answer PAST MEDICAL HISTORY: None reported Family Psychiatric History: None reported or documented SOCIAL HISTORY Marital Status: Living Arrangements: with sister Employment Status: Unemployed Access to guns/weapons: Denies Education: high school History of Abuse: Denies Legal History: Denies [place] OF SYSTEMS Constitutional: Negative for weight loss ENT: Negative for stridor Respiratory: Negative for cough or hemoptysis All other systems reviewed and are negative MENTAL STATUS EXAMINATION General Appearance and Behavior: Age appropriate, wearing appropriate clothes, good eye contact, rude, uncooperative Mood: "depressed" Affect and affective range: congruent with mood Thought Process: goal directed Thought Content: Hallucinations Speech: Normal volume, Regular rate and rhythm Suicidal Ideation: Yes Homicidal Ideation: Denies Hallucinations: Yes Delusions: None elicited Impulse Control: normal Insight and Judgment: Limited Memory/Cognition: Normal Attention: Normal Orientation: Alert, oriented Assessment Bipolar Disorder, w/Psychotic Features Cocaine Use Disorder Substance Induced Mood Disorder Plan Start Risperidone 0.25mg po BID Start Depakote DR 125mg po BID Start Trazodone 50mg po qhs Sitter: Defer to primary Medical: Per primary Disposition: Recommend acute inpatient treatment Will follow. Thank you for this consult. Medications and Allergies Allergies Allergy/AdvReac Type Severity Reaction Status Date / Time quetiapine [From Seroquel] Allergy Unknown Verified 12/02/19 11:28 Home Medications Medication Instructions Recorded Confirmed Last Taken Type predniSONE [Deltasone] 10 mg PO .TAPER #21 tab 12/02/19 Unknown Rx traMADoL [Ultram] 50 mg PO Q6HR PRN #12 tablet 12/02/19 Unknown Rx Depakote ER 09/05/20 Unknown History Gabapentin 09/05/20 Unknown History Lisinopril 10 mg 09/05/20 09/05/20 Unknown History RisperDAL 09/05/20 Unknown History Wellbutrin 09/05/20 Unknown History Active Meds: Active Medications Acetaminophen (Tylenol) 650 mg PO Q4HR PRN PRN Reason: Pain MILD(1-3)/Fever >100.5/YEN Al Hydrox/Mg Hydrox/Simethicone (Alum-Mag Hydrox-Simeth [phone]/5ml) 30 ml PO Q4HR PRN PRN Reason: Indigestion Magnesium Hydroxide (Milk Of Magnesia) 30 ml PO Q12HR PRN PRN Reason: Constipation Mental Status Exam - Vital signs Last Vital Signs Temp 97.8 F 09/06/20 08:00 Pulse 61 09/06/20 08:00 Resp 20 09/06/20 08:00 BP 143/88 09/06/20 08:00 Pulse Ox 98 09/06/20 08:00 Results Result Diagrams: 09/05/20 13:06 09/05/20 13:06 Abnormal lab results 09/05/20 09/05/20 09/05/20 Range/Units 13:06 13:06 13:06 RDW 15.5 H (13.2-15.2) % Seg Neuts % (Manual) 76.0 H (40.0-70.0) % Salicylates < 0.3 L (2.8-20.0) mg/dL Acetaminophen 5.0 L (10.0-30.0) ug/mL All other labs normal.
[2020-09-06] MEDS ORDERED: risperiDONE 0.25 MG TAB PO SCH (13:00)
[2020-09-06] MEDS ORDERED: DIVALPROEX DR 125 MG TAB PO SCH (13:00)
[2020-09-06] MEDS ORDERED: traZODone 50 MG TAB PO SCH (22:00)
== END 2020-09-06 18:20 ==
LOC: ED 11:01
DX: F20.9 Schizophrenia, unspecified (principal); R45.851 Suicidal ideations; F31.9 Bipolar disorder, unspecified; F14.20 Cocaine dependence, uncomplicated; I10 Essential (primary) hypertension; E11.9 Type 2 diabetes mellitus without complications; F17.200 Nicotine dependence, unspecified, uncomplicated; Z98.890 Other specified postprocedural states; Z88.8 Allergy status to other drugs, medicaments and biological substances
CPT/HCPCS: 36415; 80048; 80307; 81001; 85007; 85025; 99285; U0003; 80320; G0480

== ENCOUNTER 2020-09-06 16:18 | Inpatient (IN) | payer MEDICARE ==
[2020-09-06] MEDS: MELATONIN 5 MG TAB PO PRN (20:17)
[2020-09-06] MEDS: traZODone 50 MG TAB PO SCH (21:12)
[2020-09-07 04:04] LABS: Chol/HDL Ratio 3.66 %
--- NOTE | 2020-09-07 12:01 | History and Physical Report ---
GP History & Physical - History of Present Illness Date of admission: 09/06/20 Date of Examination: 09/07/20 Reason for Admission: Danger to self History of Present Illness: Quentin Calderon is a 55y/o male patient who is known to me from his ER visit. During my interview he is lying down. He is irritable. He is a/o x 3. He says he didn't sleep well. The patient says he hears voices telling him to hurt himself. He also verbalizes being depressed and SI. The patient says he has a history of "schizophrenia and bipolar." He denies illicit drug use although his urine is positive for Cocaine. PAST PSYCHIATRIC HISTORY Diagnoses: Schizophrenia, bipolar Suicide attempts or Self-harm behavior: Denies Prior psychiatric hospitalizations: Yes Substance Abuse history: Denies, but positive for cocaine Previous psychiatric medications tried: risperidone, wellbutrin, depakote Outpatient treatment: refused to answer PAST MEDICAL HISTORY: None reported Family Psychiatric History: None reported or documented SOCIAL HISTORY Marital Status: Living Arrangements: with sister Employment Status: Unemployed Access to guns/weapons: Denies Education: high school History of Abuse: Denies Legal History: Denies EVIEW OF SYSTEMS Constitutional: Negative for weight loss ENT: Negative for stridor Respiratory: Negative for cough or hemoptysis All other systems reviewed and are negative MENTAL STATUS EXAMINATION General Appearance and Behavior: Age appropriate, wearing appropriate clothes, good eye contact, rude, uncooperative Mood: "depressed" Affect and affective range: congruent with mood Thought Process: goal directed Thought Content: Hallucinations Speech: Normal volume, Regular rate and rhythm Suicidal Ideation: Yes Homicidal Ideation: Denies Hallucinations: Yes Delusions: None elicited Impulse Control: normal Insight and Judgment: Limited Memory/Cognition: Normal Attention: Normal Orientation: Alert, oriented Assessment Bipolar Disorder, w/Psychotic Features Cocaine Use Disorder Substance Induced Mood Disorder Treatment Plan Patient admitted for inpatient psychiatric evaluation, medication adjustment and close monitoring The patient's behavior, mood, sleep and appetite will be closely monitored. Patient enrolled in individual and group therapeutic sessions and encouraged to attend. Patient provided with a safe and structured environment. Patient's physical health needs will be addressed by the Hospitalist. Hospitalist Consulted Labs including CBC, CMP, Lipid profile and Hemoglobin A1C levels ordered for baseline reference Social Assessment will be completed and the Apparel Sales Associate will work with patient and family to ensure a suitable and safe disposition Medication adjustment will be made as clinically indicated Restarted meds Usual Wellness Muslim/Preservation: - Start Trazodone 50 mg po QHS & 50 mg po QHS PRN between 10 PM & 2 AM for insomnia - Start Melatonin 5 mg po QHS to promote circadian rhythm The patient agreed on the treatment plan, understood the risk, benefit, alternative treatment, potential consequence of no treatment, and gave informed consent. The patient is expected to improve for the treatment of bipolar disorder Estimated days: 7 Post hospital care: primary care provider, psychiatric provider Legal Status: Voluntary Reaction to Hospitalization: Accepting Medications and Allergies Allergies Allergy/AdvReac Type Severity Reaction Status Date / Time quetiapine [From Seroquel] Allergy Unknown Verified 12/02/19 11:28 Home Medications Medication Instructions Recorded Confirmed Last Taken Type predniSONE [Deltasone] 10 mg PO .TAPER #21 tab 12/02/19 Unknown Rx traMADoL [Ultram] 50 mg PO Q6HR PRN #12 tablet 12/02/19 Unknown Rx Depakote ER 09/05/20 Unknown History Gabapentin 09/05/20 Unknown History Lisinopril 10 mg 09/05/20 09/05/20 Unknown History RisperDAL 09/05/20 Unknown History Wellbutrin 09/05/20 Unknown History Active Meds: Active Medications Melatonin (Melatonin) 5 mg PO QHS PRN PRN Reason: Sleep Last Admin: 09/06/20 20:17 Dose: 5 mg Documented by: Trazodone HCl (Desyrel) 50 mg PO QHS [facility] Last Admin: 09/06/20 21:12 Dose: 50 mg Documented by: Results - Results Labs/Vitals: Laboratory Last Values POC Glucose 89 (70-105) 09/07/20 06:37 Hemoglobin A1c 5.3 % (4-6) 09/06/20 20:59 Triglycerides 181 mg/dL (2-149) H 09/06/20 20:59 Cholesterol 187 mg/dL (50-199) 09/06/20 20:59 LDL Cholesterol Direct 114 mg/dL (50-130) 09/06/20 20:59 HDL Cholesterol 51 mg/dL (40-59) 09/06/20 20:59 Cholesterol/HDL Ratio 3.66 % 09/06/20 20:59 TSH 1.050 mlU/mL (0.270-4.200) 09/06/20 20:59 Last Vital Signs Temp 97.9 F 09/07/20 09:16 Pulse 57 L 09/06/20 22:00 Resp 16 09/07/20 09:16 BP 112/73 09/07/20 09:16 Pulse Ox 99 09/06/20 22:00 Physical Examination - Constitutional Vitals: Vital Signs Temp Pulse Resp BP Pulse Ox 97.9 F 57 L 16 112/73 99 09/07/20 09:16 09/06/20 22:00 09/07/20 09:16 09/07/20 09:16 09/06/20 22:00 Temperature -Last 24 Hours Temperature 97.9 F Temperature 98.5 F Temperature 98.5 F Temperature 98.5 F Mental Status Exam - Vital signs Last Vital Signs Temp 97.9 F 09/07/20 09:16 Pulse 57 L 09/06/20 22:00 Resp 16 09/07/20 09:16 BP 112/73 09/07/20 09:16 Pulse Ox 99 09/06/20 22:00 Physician Certification - Certification Statement Physician Certification Statement: This is an acknowledgement statement that QUENTIN CALDERON is a 55 year old M who requires inpatient psychiatric admission for treatment which could reasonably be expected to improve the patient's condition for Estimated period of time patient will need to remain in the hospital: [ ] Plan for post-hospital care: [ ]
[2020-09-07] MEDS ORDERED: traMADol 50 MG TAB PO PRN (12:04)
[2020-09-07] MEDS ORDERED: predniSONE 10 MG TAB PO SCH (18:00)
[2020-09-07] MEDS: DIVALPROEX DR 500 MG TAB PO SCH ×2 (18:32→21:09)
[2020-09-07] MEDS: risperiDONE 0.25 MG TAB PO SCH ×2 (18:32→21:10)
[2020-09-07] MEDS: PRAZOSIN 1 MG CAP PO SCH (21:08)
[2020-09-07] MEDS: GABAPENTIN 300 MG CAP PO SCH (21:09)
[2020-09-07] MEDS: traZODone 50 MG TAB PO SCH (21:09)
[2020-09-07] MEDS: MELATONIN 5 MG TAB PO PRN (21:33)
[2020-09-07] MEDS ORDERED: PRAZOSIN 1 MG PO SCH (22:00)
[2020-09-07] MEDS ORDERED: NON-FORMULARY EACH (Gabapentin 600 MG) PO SCH (22:00)
--- NOTE | 2020-09-08 07:25 | Progress Note ---
Subjective Date of service: 09/08/20 Principal diagnosis: Schizoaffective Subjective Comment: Per Psych Nurse: Last evening the patient watched tv and had little interaction with others. His affect was irritable. He stated he needed more medication to get to sleep. He stated he had not slept in days. Patient was given prn melatonin with trazodone to assist with sleep. He was not happy there were not more meds to assist with sleep. He was not forthcoming with information. Psych Progress HPI In my interview with the patient this morning, the patient reports mood as not good, appears irritable, patient reports that his head is not right, does not want to be here, wants to and just be gone because nothing is helpinmg, he keeps hearing the voices in his head, he has lost everything, things not good with his and poor sleep but appetite is great. Patient says he is also having pain issues, needs his medications and the trazodone not helping for sleep at all. Reason for continuing inpatient treatment: Persistent Suicidal ideation, auditory hallucinations. Risperidone increased to 1mg, Medication changes, Olazanpine and remeron added Review of Symptoms: Constitutional: Negative for weight loss ENT: Negative for stridor Respiratory: Negative for cough or hemoptysis All other systems reviewed and are negative MENTAL STATUS EXAMINATION General Appearance and Behavior: Age appropriate,good hygiene, wearing appropriate clothes,good eye contact, cooperative irritable with questioning. Cooperation: Participating, Hostile Psychomotor Behavior: unremarkable and within normal limits Mood: "not good" Affect and affective range:decreased range,, dysthymic Thought Process: Illogical, Thought Content: Illogical, Hallucinations including auditory,Hopelessness, Helplessness Intellectual Functioning: Average Suicidal Ideation: Suicidal Homicidal Ideation: Denies HI Impulse Control: Impaired Insight and Judgment: Limited insight and judgment Memory: Normal Attention: Distractible, Orientation: Alert, oriented Treatment Plan Assessment and Plan - Patient Problems (1) Schizoaffective disorder Current Visit: Yes Status: Acute (2) Bipolar disorder Current Visit: No Status: Acute Olazanpine added at 5mg, rispoeridone increased to 1mg BID and Remeron QHS Patient admitted for inpatient psychiatric evaluation, medication adjustment and close monitoring The patient's behavior, mood, sleep and appetite will be closely monitored. Patient enrolled in individual and group therapeutic sessions and encouraged to attend. Patient provided with a safe and structured environment. Patient's physical health needs will be addressed by the Hospitalist. Hospitalist Consulted Labs including CBC, CMP, Lipid profile and Hemoglobin A1C levels ordered for baseline reference Social Assessment will be completed and the Salesforce Developer will work with patient and family to ensure a suitable and safe disposition Medication adjustment will be made as clinically indicated Usual Wellness Cheondoism/Preservation: - Start Trazodone 50 mg po QHS & 50 mg po QHS PRN between 10 PM & 2 AM for insomnia - Start Melatonin 5 mg po QHS to promote circadian rhythm - Start [place]-3 for brain health, reduce impulsivity, and as adjunctive treatment for mood disorder, continue upon discharge given overall benefits. - Start B1 prophylaxis with 200 mg po for 5 days The patient agreed on the treatment plan, understood the risk, benefit, alternative treatment, potential consequence of no treatment, and gave informed consent. Initial Certification Inpatient psych services: I certify that the inpatient psychiatric services are required for treatment that could reasonably be expected to improve the patient's condition. Estimated days: 5 Post hospital care: primary care provider, psychiatric provider Assessment and Plan - Patient Problems (1) Schizoaffective disorder Current Visit: Yes Status: Acute (2) Bipolar disorder Current Visit: No Status: Acute Medications and Allergies Allergies Allergy/AdvReac Type Severity Reaction Status Date / Time quetiapine [From Seroquel] Allergy Unknown Verified 12/02/19 11:28 Home Medications Medication Instructions Recorded Confirmed Last Taken Type predniSONE [Deltasone] 10 mg PO .TAPER #21 tab 12/02/19 Unknown Rx traMADoL [Ultram] 50 mg PO Q6HR PRN #12 tablet 12/02/19 09/07/20 Unknown Rx Depakote ER 500 mg PO BID 09/05/20 09/07/20 Unknown History Gabapentin 600 mg PO BID 09/05/20 09/07/20 Unknown History Lisinopril 10 mg PO DAILY 09/05/20 09/07/20 Unknown History RisperDAL 0.5 mg PO BID 09/05/20 09/07/20 Unknown History Wellbutrin 150 mg PO DAILY 09/05/20 09/07/20 Unknown History Prazosin 1 mg PO HS 09/07/20 09/07/20 Unknown History Active Meds: Active Medications Bupropion HCl (Wellbutrin) 150 mg PO DAILY [facility] Divalproex Sodium (Depakote Dr) 500 mg PO BID [facility] Last Admin: 09/07/20 21:09 Dose: 500 mg Documented by: Gabapentin (Gabapentin) 600 mg PO BID [facility] Last Admin: 09/07/20 21:09 Dose: 600 mg Documented by: Lisinopril (Zestril) 10 mg PO DAILY [facility] Melatonin (Melatonin) 5 mg PO QHS PRN PRN Reason: Sleep Last Admin: 09/07/20 21:33 Dose: 5 mg Documented by: Prazosin HCl (Prazosin) 1 mg PO QHS [facility] Last Admin: 09/07/20 21:08 Dose: 1 mg Documented by: Risperidone (Risperdal) 0.25 mg PO BID [facility] Last Admin: 09/07/20 21:10 Dose: 0.25 mg Documented by: Tramadol HCl (Ultram) 50 mg PO Q6HR PRN PRN Reason: PAIN Trazodone HCl (Desyrel) 50 mg PO QHS [facility] Last Admin: 09/07/20 21:09 Dose: 50 mg Documented by: Results - Results Labs/Vitals: Laboratory Last Values POC Glucose 89 (70-105) 09/07/20 06:37 Hemoglobin A1c 5.3 % (4-6) 09/06/20 20:59 Triglycerides 181 mg/dL (2-149) H 09/06/20 20:59 Cholesterol 187 mg/dL (50-199) 09/06/20 20:59 LDL Cholesterol Direct 114 mg/dL (50-130) 09/06/20 20:59 HDL Cholesterol 51 mg/dL (40-59) 09/06/20 20:59 Cholesterol/HDL Ratio 3.66 % 09/06/20 20:59 TSH 1.050 mlU/mL (0.270-4.200) 09/06/20 20:59 Last Vital Signs Temp 98.7 F 09/07/20 20:32 Pulse 57 L 09/07/20 21:08 Resp 18 09/07/20 20:32 BP 134/86 09/07/20 21:08 Pulse Ox 99 09/07/20 19:11
[2020-09-08] MEDS ORDERED: risperiDONE 0.25 MG TAB PO SCH (09:28)
[2020-09-08] MEDS ORDERED: LISINOPRIL 10 MG PO SCH (10:00)
[2020-09-08] MEDS ORDERED: WELLBUTRIN 150 MG PO SCH (10:00)
[2020-09-08] MEDS: risperiDONE 1 MG TAB PO SCH ×2 (10:27→21:24)
[2020-09-08] MEDS: GABAPENTIN 300 MG CAP PO SCH ×2 (10:27→21:26)
[2020-09-08] MEDS: DIVALPROEX DR 500 MG TAB PO SCH ×2 (10:27→21:24)
[2020-09-08] MEDS: buPROPion 75 MG TAB PO SCH (10:27)
[2020-09-08] MEDS: LISINOPRIL 10 MG TAB PO SCH (10:28)
[2020-09-08] MEDS ORDERED: DEPAKOTE 500 MG PO SCH (10:52)
--- NOTE | 2020-09-08 10:53 | Consultation ---
History of Present Illness - Reason for Consult Consult date: 09/08/20 Medical management Requesting physician: HILARY PALMER - History of Present Illness 55 YO Male with HTN, DM, Bipolar Disorder, Polysubstance Abuse, Nicotine Dependence, Hypothyroidism admitted to [facility] for psychiatric stabilization. Consult placed by Dr. Palmer for medical management. Patient seen and evaluated in the recreation room. Patient resting comfortably. No reported nursing events. Patient appears agitated and minimally cooperative with examiner. Patient initially complains of pain out of proportion to exam and interview and requests narcotic therapy. Past History Past Medical History: diabetes, hypertension, other (See HPI) Past Surgical History: bowel surgery Social history: , lives with family, smoking, alcohol abuse Family history: diabetes, hypertension Medications and Allergies Allergies Allergy/AdvReac Type Severity Reaction Status Date / Time quetiapine [From Seroquel] Allergy Unknown Verified 12/02/19 11:28 Home Medications Medication Instructions Recorded Confirmed Last Taken Type predniSONE [Deltasone] 10 mg PO .TAPER #21 tab 12/02/19 Unknown Rx traMADoL [Ultram] 50 mg PO Q6HR PRN #12 tablet 12/02/19 09/07/20 Unknown Rx Depakote ER 500 mg PO BID 09/05/20 09/07/20 Unknown History Gabapentin 600 mg PO BID 09/05/20 09/07/20 Unknown History Lisinopril 10 mg PO DAILY 09/05/20 09/07/20 Unknown History RisperDAL 0.5 mg PO BID 09/05/20 09/07/20 Unknown History Wellbutrin 150 mg PO DAILY 09/05/20 09/07/20 Unknown History Prazosin 1 mg PO HS 09/07/20 09/07/20 Unknown History Active Meds: Active Medications Bupropion HCl (Wellbutrin) 150 mg PO DAILY [facility] Last Admin: 09/08/20 10:27 Dose: 150 mg Documented by: Divalproex Sodium (Depakote Dr) 500 mg PO BID [facility] Last Admin: 09/08/20 10:27 Dose: 500 mg Documented by: Gabapentin (Gabapentin) 600 mg PO BID [facility] Last Admin: 09/08/20 10:27 Dose: 600 mg Documented by: Lisinopril (Zestril) 10 mg PO DAILY [facility] Last Admin: 09/08/20 10:28 Dose: 10 mg Documented by: Melatonin (Melatonin) 10 mg PO QHS [facility] Mirtazapine (Remeron) 15 mg PO QHS [facility] Olanzapine (Zyprexa) 5 mg PO QHS [facility] Last Admin: 09/07/20 21:08 Dose: 1 mg Documented by: Risperidone (Risperdal) 1 mg PO BID [facility] Last Admin: 09/08/20 10:27 Dose: 1 mg Documented by: Trazodone HCl (Desyrel) 50 mg PO QHS [facility] Last Admin: 09/07/20 21:09 Dose: 50 mg Documented by: Review of Systems Constitutional: no weight loss, no weight gain, no fever, no chills Ears, nose, mouth and throat: no ear pain, no tinnitis, no nose pain, no nasal congestion Cardiovascular: no chest pain, no orthopnea, no rapid/irregular heart beat, no syncope Respiratory: no cough, no cough with sputum, no shortness of breath Gastrointestinal: no abdominal pain, no vomiting, no diarrhea, no change in ciera wel habits, no hematemesis Genitourinary Male: no hematuria, no flank pain, no discharge Rectal: no pain, no incontinence, no bleeding Musculoskeletal: no neck pain, no shooting arm pain, no low back pain, no leg numbness/tingling Integumentary: no rash, no pruritis, no sores, no wounds, no boils Neurological: no head injury, no paralysis, no parathesias, no tingling, no seizures, no syncope, no tremors Psychiatric: suicidal ideation Endocrine: no cold intolerance, no heat intolerance, no polyphagia, no polyuria, no nocturia, no excessive sweating, no flushing Hematologic/Lymphatic: no easy bruising, no easy bleeding, no lymphadenopathy, no lymphedema Allergic/Immunologic: no allergic rhinitis, no wheezing, no angioedema Exam - Constitutional Vitals: Temp Pulse Resp BP Pulse Ox 98 F 78 18 117/81 98 09/08/20 08:05 09/08/20 10:28 09/08/20 08:05 09/08/20 10:28 09/08/20 08:05 General appearance: Present: no acute distress, well-nourished - EENT Eyes: Present: PERRL ENT: hearing intact, clear oral mucosa - Neck Neck: Present: supple, normal ROM - Respiratory Respiratory effort: normal Respiratory: bilateral: CTA - Cardiovascular Heart Sounds: Present: S1 & S2. Absent: rub, click - Extremities Extremities: pulses symmetrical, No edema Peripheral Pulses: within normal limits - Abdominal General gastrointestinal: Present: soft, non-tender, non-distended, normal bowel sounds Male genitourinary: Present: normal - Integumentary Integumentary: Present: clear, warm, dry - Musculoskeletal Musculoskeletal: gait normal, strength equal bilaterally - Psychiatric Psychiatric: intact judgment & insight, agitated - Neurologic Neurologic: CNII-XII intact, moves all extremities Assessment and Plan - Patient Problems (1) Polysubstance abuse Current Visit: Yes Status: Acute Plan to address problem: Thiamine, folic acid, multivitamin daily, supportive care. (2) Nicotine dependence Current Visit: Yes Status: Acute Qualifiers: Nicotine product type: cigarettes Substance use status: in withdrawal Qualified Code(s): F17.213 - Nicotine dependence, cigarettes, with withdrawal Plan to address problem: Smoking cessation counseling, supportive care, behavior change counseling, +15 minutes. (3) Hypertension Current Visit: Yes Status: Acute Qualifiers: Hypertension type: essential hypertension Qualified Code(s): I10 - Essential (primary) hypertension Plan to address problem: Monitor blood pressure every shift, continue medical management. (4) Diabetes Current Visit: Yes Status: Suspected Plan to address problem: Hemoglobin A1c is 5.7.
[2020-09-08] MEDS: MULTIVITAMINS ,THERAPEUTIC TAB PO SCH (16:40)
[2020-09-08] MEDS: THIAMINE 100 MG TAB PO SCH (16:40)
[2020-09-08] MEDS: FOLIC ACID 1 MG TAB PO SCH (16:40)
[2020-09-08] MEDS: ACETAMINOPHEN 325 MG TAB PO PRN (16:55)
[2020-09-08] MEDS: PRAZOSIN 1 MG CAP PO SCH (21:24)
[2020-09-08] MEDS: traZODone 50 MG TAB PO SCH (21:24)
[2020-09-08] MEDS: MIRTAZAPINE 15 MG TAB PO SCH (21:24)
[2020-09-08] MEDS: MELATONIN 5 MG TAB PO SCH (21:26)
[2020-09-09] MEDS: buPROPion 75 MG TAB PO SCH (09:22)
[2020-09-09] MEDS: LISINOPRIL 10 MG TAB PO SCH (09:23)
[2020-09-09] MEDS: GABAPENTIN 300 MG CAP PO SCH ×2 (09:23→21:21)
[2020-09-09] MEDS: THIAMINE 100 MG TAB PO SCH (09:23)
[2020-09-09] MEDS: DIVALPROEX DR 500 MG TAB PO SCH ×2 (09:23→21:22)
[2020-09-09] MEDS: MULTIVITAMINS ,THERAPEUTIC TAB PO SCH (09:23)
[2020-09-09] MEDS: risperiDONE 1 MG TAB PO SCH ×2 (09:23→21:17)
[2020-09-09] MEDS: FOLIC ACID 1 MG TAB PO SCH (09:23)
--- NOTE | 2020-09-09 09:29 | Progress Note ---
Subjective Date of service: 09/09/20 Principal diagnosis: Schizoaffective Subjective Comment: Per Psych Nurse:Patient was calm and more cooperative this evening. He smiled at times. He denies si/hi/ah/vh. Patient continues to verbalize feeling depressed. He showered this evening. Patient was medication compliant. Will continue to monitor patient for safety. Psych Progress HPI Patient seen this AM, reports sleeping a little better last night compared to the night prior, says he is bran this AM mostly due to the nurses because they had woken him up too early and that put him in a bad mood. Patient endorses SI, denies HI, endorses auditory hallucinations mostling voices telling him to leave and just . Reason for continuing inpatient treatment: Persistent Suicidal ideation, auditory hallucinations. Risperidone increased to 1mg, Medication changes, Olazanpine and remeron added Review of Symptoms: Constitutional: Negative for weight loss ENT: Negative for stridor Respiratory: Negative for cough or hemoptysis All other systems reviewed and are negative MENTAL STATUS EXAMINATION General Appearance and Behavior: Age appropriate,good hygiene, wearing appropriate clothes,good eye contact, cooperative irritable with questioning. Cooperation: Participating, Hostile Psychomotor Behavior: unremarkable and within normal limits Mood: "not good" Affect and affective range:decreased range,, dysthymic Thought Process: Illogical, Thought Content: Illogical, Hallucinations including auditory,Hopelessness, Helplessness Intellectual Functioning: Average Suicidal Ideation: Suicidal Homicidal Ideation: Denies HI Impulse Control: Impaired Insight and Judgment: Limited insight and judgment Memory: Normal Attention: Distractible, Orientation: Alert, oriented Treatment Plan Assessment and Plan - Patient Problems (1) Schizoaffective disorder Current Visit: Yes Status: Acute (2) Bipolar disorder Current Visit: No Status: Acute Olazanpine added at 5mg, rispoeridone increased to 1mg BID and Remeron QHS Patient admitted for inpatient psychiatric evaluation, medication adjustment and close monitoring The patient's behavior, mood, sleep and appetite will be closely monitored. Patient enrolled in individual and group therapeutic sessions and encouraged to attend. Patient provided with a safe and structured environment. Patient's physical health needs will be addressed by the Hospitalist. Hospitalist Consulted Labs including CBC, CMP, Lipid profile and Hemoglobin A1C levels ordered for baseline reference Social Assessment will be completed and the Manager Of Learning will work with patient and family to ensure a suitable and safe disposition Medication adjustment will be made as clinically indicated Usual Wellness Scientologist/Preservation: - Start Trazodone 50 mg po QHS & 50 mg po QHS PRN between 10 PM & 2 AM for insomnia - Start Melatonin 5 mg po QHS to promote circadian rhythm - Start [place]-3 for brain health, reduce impulsivity, and as adjunctive treatment for mood disorder, continue upon discharge given overall benefits. - Start B1 prophylaxis with 200 mg po for 5 days The patient agreed on the treatment plan, understood the risk, benefit, alternative treatment, potential consequence of no treatment, and gave informed consent. Initial Certification Inpatient psych services: I certify that the inpatient psychiatric services are required for treatment that could reasonably be expected to improve the patient's condition. Estimated days: 4 Post hospital care: primary care provider, psychiatric provider Assessment and Plan - Patient Problems (1) Schizoaffective disorder Current Visit: Yes Status: Acute (2) Bipolar disorder Current Visit: No Status: Acute Medications and Allergies Allergies Allergy/AdvReac Type Severity Reaction Status Date / Time quetiapine [From Seroquel] Allergy Unknown Verified 12/02/19 11:28 Home Medications Medication Instructions Recorded Confirmed Last Taken Type predniSONE [Deltasone] 10 mg PO .TAPER #21 tab 12/02/19 Unknown Rx traMADoL [Ultram] 50 mg PO Q6HR PRN #12 tablet 12/02/19 09/07/20 Unknown Rx Depakote ER 500 mg PO BID 09/05/20 09/07/20 Unknown History Gabapentin 600 mg PO BID 09/05/20 09/07/20 Unknown History Lisinopril 10 mg PO DAILY 09/05/20 09/07/20 Unknown History RisperDAL 0.5 mg PO BID 09/05/20 09/07/20 Unknown History Wellbutrin 150 mg PO DAILY 09/05/20 09/07/20 Unknown History Prazosin 1 mg PO HS 09/07/20 09/07/20 Unknown History Active Meds: Active Medications Acetaminophen (Tylenol) 650 mg PO Q6H PRN PRN Reason: Pain, Mild (1-3) Last Admin: 09/08/20 16:55 Dose: 650 mg Documented by: Bupropion HCl (Wellbutrin) 150 mg PO DAILY [facility] Last Admin: 09/09/20 09:22 Dose: 150 mg Documented by: Divalproex Sodium (Gaby Pratt) 500 mg PO BID [facility] Last Admin: 09/09/20 09:23 Dose: 500 mg Documented by: Folic Acid (Folvite) 1 mg PO QDAY [facility] Last Admin: 09/09/20 09:23 Dose: 1 mg Documented by: Gabapentin (Gabapentin) 600 mg PO BID [facility] Last Admin: 09/09/20 09:23 Dose: 600 mg Documented by: Lisinopril (Zestril) 10 mg PO DAILY [facility] Last Admin: 09/09/20 09:23 Dose: 10 mg Documented by: Melatonin (Melatonin) 10 mg PO QHS [facility] Last Admin: 09/08/20 21:26 Dose: 10 mg Documented by: Mirtazapine (Remeron) 15 mg PO QHS [facility] Last Admin: 09/08/20 21:24 Dose: 15 mg Documented by: Multivitamins (Theragran Tab) 1 each PO QDAY [facility] Last Admin: 09/09/20 09:23 Dose: 1 each Documented by: Olanzapine (Zyprexa) 5 mg PO QHS [facility] Last Admin: 09/08/20 21:24 Dose: 5 mg Documented by: Prazosin HCl (Prazosin) 1 mg PO QHS [facility] Last Admin: 09/08/20 21:24 Dose: 1 mg Documented by: Risperidone (Risperdal) 1 mg PO BID [facility] Last Admin: 09/09/20 09:23 Dose: 1 mg Documented by: Thiamine HCl (Vitamin B-1) 100 mg PO QDAY [facility] Last Admin: 09/09/20 09:23 Dose: 100 mg Documented by: Trazodone HCl (Desyrel) 50 mg PO QHS [facility] Last Admin: 09/08/20 21:24 Dose: 50 mg Documented by: Results - Results Labs/Vitals: Laboratory Last Values POC Glucose 89 (70-105) 09/07/20 06:37 Hemoglobin A1c 5.3 % (4-6) 09/06/20 20:59 Triglycerides 181 mg/dL (2-149) H 09/06/20 20:59 Cholesterol 187 mg/dL (50-199) 09/06/20 20:59 LDL Cholesterol Direct 114 mg/dL (50-130) 09/06/20 20:59 HDL Cholesterol 51 mg/dL (40-59) 09/06/20 20:59 Cholesterol/HDL Ratio 3.66 % 09/06/20 20:59 TSH 1.050 mlU/mL (0.270-4.200) 09/06/20 20:59 Last Vital Signs Temp 98.0 F 09/09/20 08:32 Pulse 56 L 09/09/20 09:23 Resp 18 09/09/20 08:32 BP 104/75 09/09/20 09:23 Pulse Ox 99 09/09/20 08:32
[2020-09-09] MEDS: traZODone 50 MG TAB PO SCH (21:16)
[2020-09-09] MEDS: PRAZOSIN 1 MG CAP PO SCH (21:16)
[2020-09-09] MEDS: MIRTAZAPINE 15 MG TAB PO SCH (21:17)
[2020-09-09] MEDS: MELATONIN 5 MG TAB PO SCH (21:24)
[2020-09-10] MEDS: GABAPENTIN 300 MG CAP PO SCH ×2 (09:23→21:00)
[2020-09-10] MEDS: risperiDONE 1 MG TAB PO SCH ×2 (09:24→21:00)
[2020-09-10] MEDS: buPROPion 75 MG TAB PO SCH (09:24)
[2020-09-10] MEDS: THIAMINE 100 MG TAB PO SCH (09:24)
[2020-09-10] MEDS: FOLIC ACID 1 MG TAB PO SCH (09:24)
[2020-09-10] MEDS: MULTIVITAMINS ,THERAPEUTIC TAB PO SCH (09:24)
[2020-09-10] MEDS: LISINOPRIL 10 MG TAB PO SCH (09:24)
[2020-09-10] MEDS: DIVALPROEX DR 500 MG TAB PO SCH ×2 (09:24→21:00)
--- NOTE | 2020-09-10 09:25 | Progress Note ---
Subjective Date of service: 09/10/20 Principal diagnosis: Schizoaffective Subjective Comment: Per Psych Nurse:After breakfast pt became less irritable and angry. pt is now pleasant, social with others, relaxed and compliant w/ meds. pt participated well during group. pt is independent w/ adl's, has a steady gait and excellent appetite. Close monitoring continues Psych Progress HPI Patient seen in room, laying in bed, says his sleep keeps getting better but still feels interrupted, and he rest well compared to days before coming here. He also endorses improved mood, denies having suicidal thoughts today, or AVH and endorses good appetite with no other complaints. Reason for continuing inpatient treatment: Recent medication changes, will continue to observe for mood stability, medication tolerance, and medication side effects. Review of Symptoms: Constitutional: Negative for weight loss ENT: Negative for stridor Respiratory: Negative for cough or hemoptysis All other systems reviewed and are negative MENTAL STATUS EXAMINATION General Appearance and Behavior: Age appropriate,good hygiene, wearing appropriate clothes,good eye contact, cooperative irritable with questioning. Cooperation: Participating, Hostile Psychomotor Behavior: unremarkable and within normal limits Mood: " i feel better" Affect and affective range:congruent with mood Thought Process: logical, Thought Content: Within reality Intellectual Functioning: Average Suicidal Ideation: Denies Homicidal Ideation: Denies HI Impulse Control: unimpaired Insight and Judgment: Improved insight and judgment Memory: Normal Attention: Normal Orientation: Alert, oriented Treatment Plan Assessment and Plan - Patient Problems (1) Schizoaffective disorder Current Visit: Yes Status: Acute (2) Bipolar disorder Current Visit: No Status: Acute Continue current medications Patient admitted for inpatient psychiatric evaluation, medication adjustment and close monitoring The patient's behavior, mood, sleep and appetite will be closely monitored. Patient enrolled in individual and group therapeutic sessions and encouraged to attend. Patient provided with a safe and structured environment. Patient's physical health needs will be addressed by the Hospitalist. Hospitalist Consulted Labs including CBC, CMP, Lipid profile and Hemoglobin A1C levels ordered for baseline reference Social Assessment will be completed and the Boiler Tenders Supervisor will work with patient and family to ensure a suitable and safe disposition Medication adjustment will be made as clinically indicated Usual Wellness Episcopalian/Preservation: - Start Trazodone 50 mg po QHS & 50 mg po QHS PRN between 10 PM & 2 AM for insomnia - Start Melatonin 5 mg po QHS to promote circadian rhythm - Start [place]-3 for brain health, reduce impulsivity, and as adjunctive treatment for mood disorder, continue upon discharge given overall benefits. - Start B1 prophylaxis with 200 mg po for 5 days The patient agreed on the treatment plan, understood the risk, benefit, alternative treatment, potential consequence of no treatment, and gave informed consent. Initial Certification Inpatient psych services: I certify that the inpatient psychiatric services are required for treatment that could reasonably be expected to improve the patient's condition. Estimated days: 4 Post hospital care: primary care provider, psychiatric provider Assessment and Plan - Patient Problems (1) Schizoaffective disorder Current Visit: Yes Status: Acute (2) Bipolar disorder Current Visit: No Status: Acute Medications and Allergies Allergies Allergy/AdvReac Type Severity Reaction Status Date / Time quetiapine [From Seroquel] Allergy Unknown Verified 12/02/19 11:28 Home Medications Medication Instructions Recorded Confirmed Last Taken Type predniSONE [Deltasone] 10 mg PO .TAPER #21 tab 12/02/19 Unknown Rx traMADoL [Ultram] 50 mg PO Q6HR PRN #12 tablet 12/02/19 09/07/20 Unknown Rx Depakote ER 500 mg PO BID 09/05/20 09/07/20 Unknown History Gabapentin 600 mg PO BID 09/05/20 09/07/20 Unknown History Lisinopril 10 mg PO DAILY 09/05/20 09/07/20 Unknown History RisperDAL 0.5 mg PO BID 09/05/20 09/07/20 Unknown History Wellbutrin 150 mg PO DAILY 09/05/20 09/07/20 Unknown History Prazosin 1 mg PO HS 09/07/20 09/07/20 Unknown History Active Meds: Active Medications Acetaminophen (Tylenol) 650 mg PO Q6H PRN PRN Reason: Pain, Mild (1-3) Last Admin: 09/08/20 16:55 Dose: 650 mg Documented by: Bupropion HCl (Wellbutrin) 150 mg PO DAILY [facility] Last Admin: 09/09/20 09:22 Dose: 150 mg Documented by: Divalproex Sodium (Depakote Dr) 500 mg PO BID [facility] Last Admin: 09/09/20 21:22 Dose: 500 mg Documented by: Folic Acid (Folvite) 1 mg PO QDAY [facility] Last Admin: 09/09/20 09:23 Dose: 1 mg Documented by: Gabapentin (Gabapentin) 600 mg PO BID [facility] Last Admin: 09/09/20 21:21 Dose: 600 mg Documented by: Lisinopril (Zestril) 10 mg PO DAILY [facility] Last Admin: 09/09/20 09:23 Dose: 10 mg Documented by: Melatonin (Melatonin) 10 mg PO QHS [facility] Last Admin: 09/09/20 21:24 Dose: 10 mg Documented by: Mirtazapine (Remeron) 15 mg PO QHS [facility] Last Admin: 09/09/20 21:17 Dose: 15 mg Documented by: Multivitamins (Theragran Tab) 1 each PO QDAY [facility] Last Admin: 09/09/20 09:23 Dose: 1 each Documented by: Olanzapine (Zyprexa) 5 mg PO QHS [facility] Last Admin: 09/09/20 21:17 Dose: 5 mg Documented by: Prazosin HCl (Prazosin) 1 mg PO QHS [facility] Last Admin: 09/09/20 21:16 Dose: 1 mg Documented by: Risperidone (Risperdal) 1 mg PO BID [facility] Last Admin: 09/09/20 21:17 Dose: 1 mg Documented by: Thiamine HCl (Vitamin B-1) 100 mg PO QDAY [facility] Last Admin: 09/09/20 09:23 Dose: 100 mg Documented by: Trazodone HCl (Desyrel) 50 mg PO QHS [facility] Last Admin: 09/09/20 21:16 Dose: 50 mg Documented by: Results - Results Labs/Vitals: Laboratory Last Values POC Glucose 89 (70-105) 09/07/20 06:37 Hemoglobin A1c 5.3 % (4-6) 09/06/20 20:59 Triglycerides 181 mg/dL (2-149) H 09/06/20 20:59 Cholesterol 187 mg/dL (50-199) 09/06/20 20:59 LDL Cholesterol Direct 114 mg/dL (50-130) 09/06/20 20:59 HDL Cholesterol 51 mg/dL (40-59) 09/06/20 20:59 Cholesterol/HDL Ratio 3.66 % 09/06/20 20:59 TSH 1.050 mlU/mL (0.270-4.200) 09/06/20 20:59 Last Vital Signs Temp 97.9 F 09/10/20 07:58 Pulse 55 L 09/10/20 07:58 Resp 18 09/10/20 07:58 BP 120/84 09/10/20 07:58 Pulse Ox 95 09/10/20 07:58
[2020-09-10] MEDS: MELATONIN 5 MG TAB PO SCH (20:59)
[2020-09-10] MEDS: traZODone 50 MG TAB PO SCH (20:59)
[2020-09-10] MEDS: PRAZOSIN 1 MG CAP PO SCH (20:59)
[2020-09-10] MEDS: MIRTAZAPINE 15 MG TAB PO SCH (21:00)
--- NOTE | 2020-09-11 07:29 | Progress Note ---
Subjective Date of service: 09/11/20 Principal diagnosis: Schizoaffective Subjective Comment: Per Psych Nurse:Pt received watching TV in the day room w/o interaction with peers. A&OX4. Able to make needs known by requesting hygiene stuff, clean disposable scrub, and phone to call. Denies pain, SI, or HI. No acute distress observed and none reported. Will continue to monitor for safety. Psych Progress HPI Patient seen in breakfast room, reports speaking with dawood prather yesterday whom he is from, and conversation went well but towards the end, she had cursed him out, he also expressed concerns about being homeless now, he used to live at his aunts place but unable to go back there and now requesting for social security specialist if they could help him find a place since he gets SSI. Patient denies SI, or HI. Reason for continuing inpatient treatment: Recent medication changes, will continue to observe for mood stability, medication tolerance, and medication side effects. Review of Symptoms: Constitutional: Negative for weight loss ENT: Negative for stridor Respiratory: Negative for cough or hemoptysis All other systems reviewed and are negative MENTAL STATUS EXAMINATION General Appearance and Behavior: Age appropriate,good hygiene, wearing appropriate clothes,good eye contact, cooperative irritable with questioning. Cooperation: Participating, Hostile Psychomotor Behavior: unremarkable and within normal limits Mood: "good" Affect and affective range:congruent with mood Thought Process: logical, Thought Content: Within reality Intellectual Functioning: Average Suicidal Ideation: Denies Homicidal Ideation: Denies HI Impulse Control: unimpaired Insight and Judgment: Improved insight and judgment Memory: Normal Attention: Normal Orientation: Alert, oriented Treatment Plan Assessment and Plan - Patient Problems (1) Schizoaffective disorder Current Visit: Yes Status: Acute (2) Bipolar disorder Current Visit: No Status: Acute Continue current medications Patient admitted for inpatient psychiatric evaluation, medication adjustment and close monitoring The patient's behavior, mood, sleep and appetite will be closely monitored. Patient enrolled in individual and group therapeutic sessions and encouraged to attend. Patient provided with a safe and structured environment. Patient's physical health needs will be addressed by the Hospitalist. Hospitalist Consulted Labs including CBC, CMP, Lipid profile and Hemoglobin A1C levels ordered for baseline reference Social Assessment will be completed and the Warehouse Packaging Supervisor will work with patient and family to ensure a suitable and safe disposition Medication adjustment will be made as clinically indicated Usual Wellness Cheondoism/Preservation: - Start Trazodone 50 mg po QHS & 50 mg po QHS PRN between 10 PM & 2 AM for insomnia - Start Melatonin 5 mg po QHS to promote circadian rhythm - Start [place]-3 for brain health, reduce impulsivity, and as adjunctive treatment for mood disorder, continue upon discharge given overall benefits. - Start B1 prophylaxis with 200 mg po for 5 days The patient agreed on the treatment plan, understood the risk, benefit, alternative treatment, potential consequence of no treatment, and gave informed consent. Initial Certification Inpatient psych services: I certify that the inpatient psychiatric services are required for treatment that could reasonably be expected to improve the patient's condition. Estimated days: 2 Post hospital care: primary care provider, psychiatric provider Assessment and Plan - Patient Problems (1) Schizoaffective disorder Current Visit: Yes Status: Acute (2) Bipolar disorder Current Visit: No Status: Acute Medications and Allergies Allergies Allergy/AdvReac Type Severity Reaction Status Date / Time quetiapine [From Seroquel] Allergy Unknown Verified 12/02/19 11:28 Home Medications Medication Instructions Recorded Confirmed Last Taken Type predniSONE [Deltasone] 10 mg PO .TAPER #21 tab 12/02/19 Unknown Rx traMADoL [Ultram] 50 mg PO Q6HR PRN #12 tablet 12/02/19 09/07/20 Unknown Rx Depakote ER 500 mg PO BID 09/05/20 09/07/20 Unknown History Gabapentin 600 mg PO BID 09/05/20 09/07/20 Unknown History Lisinopril 10 mg PO DAILY 09/05/20 09/07/20 Unknown History RisperDAL 0.5 mg PO BID 09/05/20 09/07/20 Unknown History Wellbutrin 150 mg PO DAILY 09/05/20 09/07/20 Unknown History Prazosin 1 mg PO HS 09/07/20 09/07/20 Unknown History Active Meds: Active Medications Acetaminophen (Tylenol) 650 mg PO Q6H PRN PRN Reason: Pain, Mild (1-3) Last Admin: 09/08/20 16:55 Dose: 650 mg Documented by: Bupropion HCl (Wellbutrin) 150 mg PO DAILY [facility] Last Admin: 09/10/20 09:24 Dose: 150 mg Documented by: Divalproex Sodium (Depakote Dr) 500 mg PO BID [facility] Last Admin: 09/10/20 21:00 Dose: 500 mg Documented by: Folic Acid (Folvite) 1 mg PO QDAY [facility] Last Admin: 09/10/20 09:24 Dose: 1 mg Documented by: Gabapentin (Gabapentin) 600 mg PO BID [facility] Last Admin: 09/10/20 21:00 Dose: 600 mg Documented by: Lisinopril (Zestril) 10 mg PO DAILY [facility] Last Admin: 09/10/20 09:24 Dose: 10 mg Documented by: Melatonin (Melatonin) 10 mg PO QHS [facility] Last Admin: 09/10/20 20:59 Dose: 10 mg Documented by: Mirtazapine (Remeron) 15 mg PO QHS [facility] Last Admin: 09/10/20 21:00 Dose: 15 mg Documented by: Multivitamins (Theragran Tab) 1 each PO QDAY [facility] Last Admin: 09/10/20 09:24 Dose: 1 each Documented by: Olanzapine (Zyprexa) 5 mg PO QHS [facility] Last Admin: 09/10/20 21:00 Dose: 5 mg Documented by: Prazosin HCl (Prazosin) 1 mg PO QHS [facility] Last Admin: 09/10/20 20:59 Dose: 1 mg Documented by: Risperidone (Risperdal) 1 mg PO BID [facility] Last Admin: 09/10/20 21:00 Dose: 1 mg Documented by: Thiamine HCl (Vitamin B-1) 100 mg PO QDAY [facility] Last Admin: 09/10/20 09:24 Dose: 100 mg Documented by: Trazodone HCl (Desyrel) 50 mg PO QHS [facility] Last Admin: 09/10/20 20:59 Dose: 50 mg Documented by: Results - Results Labs/Vitals: Laboratory Last Values POC Glucose 89 (70-105) 09/07/20 06:37 Hemoglobin A1c 5.3 % (4-6) 09/06/20 20:59 Triglycerides 181 mg/dL (2-149) H 09/06/20 20:59 Cholesterol 187 mg/dL (50-199) 09/06/20 20:59 LDL Cholesterol Direct 114 mg/dL (50-130) 09/06/20 20:59 HDL Cholesterol 51 mg/dL (40-59) 09/06/20 20:59 Cholesterol/HDL Ratio 3.66 % 09/06/20 20:59 TSH 1.050 mlU/mL (0.270-4.200) 09/06/20 20:59 Last Vital Signs Temp 9.2 F L 09/10/20 22:00 Pulse 56 L 09/10/20 22:00 Resp 18 09/10/20 22:00 BP 114/71 09/10/20 22:00 Pulse Ox 99 09/10/20 22:00
[2020-09-11] MEDS: LISINOPRIL 10 MG TAB PO SCH (11:20)
[2020-09-11] MEDS: GABAPENTIN 300 MG CAP PO SCH ×2 (11:22→21:40)
[2020-09-11] MEDS: buPROPion 75 MG TAB PO SCH (11:23)
[2020-09-11] MEDS: MULTIVITAMINS ,THERAPEUTIC TAB PO SCH (11:23)
[2020-09-11] MEDS: DIVALPROEX DR 500 MG TAB PO SCH ×2 (11:23→21:39)
[2020-09-11] MEDS: THIAMINE 100 MG TAB PO SCH (11:23)
[2020-09-11] MEDS: risperiDONE 1 MG TAB PO SCH ×2 (11:23→21:39)
[2020-09-11] MEDS: FOLIC ACID 1 MG TAB PO SCH (11:24)
--- NOTE | 2020-09-11 21:11 | Progress Note ---
Assessment and Plan - Patient Problems (1) Polysubstance abuse Current Visit: Yes Status: Acute Plan to address problem: Thiamine, folic acid, multivitamin daily, supportive care. (2) Nicotine dependence Current Visit: Yes Status: Acute Qualifiers: Nicotine product type: cigarettes Substance use status: in withdrawal Qualified Code(s): F17.213 - Nicotine dependence, cigarettes, with withdrawal Plan to address problem: Smoking cessation counseling, supportive care, behavior change counseling, +15 minutes. (3) Hypertension Current Visit: Yes Status: Acute Qualifiers: Hypertension type: essential hypertension Qualified Code(s): I10 - Essential (primary) hypertension Plan to address problem: Monitor blood pressure every shift, continue medical management. (4) Diabetes Current Visit: Yes Status: Suspected Plan to address problem: Hemoglobin A1c is 5.7. History Interval history: 55 YO Male with HTN, DM, Bipolar Disorder, Polysubstance Abuse, Nicotine Dependence, Hypothyroidism admitted to [facility] for psychiatric stabilization. Patient resting comfortably. No reported nursing events. Patient agitated and minimally cooperative with exam and interview. Hospitalist Physical - Constitutional Vitals: Temp Pulse Resp BP Pulse Ox 98.4 F 55 L 16 112/77 98 09/11/20 08:00 09/11/20 11:20 09/11/20 07:58 09/11/20 11:20 09/11/20 08:00 General appearance: Present: no acute distress, well-nourished - EENT Eyes: Present: PERRL, EOM intact ENT: hearing intact - Neck Neck: Present: supple - Respiratory Respiratory effort: normal Respiratory: bilateral: CTA - Cardiovascular Rhythm: regular Heart Sounds: Present: gallop - Extremities Extremities: no ischemia Peripheral Pulses: within normal limits - Abdominal General gastrointestinal: soft, non-tender, non-distended - Integumentary Integumentary: Present: erythema - Psychiatric Psychiatric: agitated - Neurologic Neurologic: CNII-XII intact Results - Labs Labs: Laboratory Last Values POC Glucose 89 (70-105) 09/07/20 06:37 Hemoglobin A1c 5.3 % (4-6) 09/06/20 20:59 Triglycerides 181 mg/dL (2-149) H 09/06/20 20:59 Cholesterol 187 mg/dL (50-199) 09/06/20 20:59 LDL Cholesterol Direct 114 mg/dL (50-130) 09/06/20 20:59 HDL Cholesterol 51 mg/dL (40-59) 09/06/20 20:59 Cholesterol/HDL Ratio 3.66 % 09/06/20 20:59 TSH 1.050 mlU/mL (0.270-4.200) 09/06/20 20:59 Deluna/IV: Voiding Method Toilet Active Medications - Current Medications Current Medications: Generic Name Dose Route Start Last Admin Trade Name Freq PRN Reason Stop Dose Admin Acetaminophen 650 mg 09/08/20 16:28 09/08/20 16:55 Tylenol PO 650 mg Q6H PRN Administration Pain, Mild (1-3) Bupropion HCl 150 mg 09/08/20 10:00 09/11/20 11:23 Wellbutrin PO 150 mg DAILY [facility] Administration Divalproex Sodium 500 mg 09/07/20 13:00 09/11/20 11:[address] PO 500 mg BID [facility] Administration Folic Acid 1 mg 09/08/20 16:00 09/11/20 11:24 Folvite PO 1 mg QDAY [facility] Administration Gabapentin 600 mg 09/07/20 22:00 09/11/20 11:22 Gabapentin PO 600 mg BID [facility] Administration Lisinopril 10 mg 09/08/20 10:00 09/11/20 11:20 Zestril PO 10 mg DAILY [facility] Administration Melatonin 10 mg 09/08/20 22:00 09/10/20 20:59 Melatonin PO 10 mg QHS [facility] Administration Mirtazapine 15 mg 09/08/20 22:00 09/10/20 21:00 Remeron PO 15 mg QHS [facility] Administration Multivitamins 1 each 09/08/20 16:00 09/11/20 11:23 Theragran Tab PO 1 each QDAY [facility] Administration Olanzapine 5 mg 09/08/20 22:00 09/10/20 21:00 Zyprexa PO 5 mg QHS [facility] Administration Prazosin HCl 1 mg 09/07/20 22:00 09/10/20 20:59 Prazosin PO 1 mg QHS [facility] Administration Risperidone 1 mg 09/08/20 10:00 09/11/20 11:23 Risperdal PO 1 mg BID [facility] Administration Thiamine HCl 100 mg 09/08/20 16:00 09/11/20 11:23 Vitamin B-1 PO 100 mg QDAY [facility] Administration Trazodone HCl 50 mg 09/06/20 22:00 09/10/20 20:59 Desyrel PO 50 mg QHS [facility] Administration
--- NOTE | 2020-09-11 21:13 | Progress Note ---
Assessment and Plan - Patient Problems (1) Polysubstance abuse Current Visit: Yes Status: Acute Plan to address problem: Thiamine, folic acid, multivitamin daily, supportive care. (2) Nicotine dependence Current Visit: Yes Status: Acute Qualifiers: Nicotine product type: cigarettes Substance use status: in withdrawal Qualified Code(s): F17.213 - Nicotine dependence, cigarettes, with withdrawal Plan to address problem: Smoking cessation counseling, supportive care, behavior change counseling, +15 minutes. (3) Hypertension Current Visit: Yes Status: Acute Qualifiers: Hypertension type: essential hypertension Qualified Code(s): I10 - Essential (primary) hypertension Plan to address problem: Monitor blood pressure every shift, continue medical management. (4) Diabetes Current Visit: Yes Status: Suspected Plan to address problem: Hemoglobin A1c is 5.7. History Interval history: 55 YO Male with HTN, DM, Bipolar Disorder, Polysubstance Abuse, Nicotine Dependence, Hypothyroidism admitted to [facility] for psychiatric stabilization. Patient resting comfortably. No reported nursing events. Patient agitated and minimally cooperative with exam and interview. Hospitalist Physical - Constitutional Vitals: Temp Pulse Resp BP Pulse Ox 98.4 F 55 L 16 112/77 98 09/11/20 08:00 09/11/20 11:20 09/11/20 07:58 09/11/20 11:20 09/11/20 08:00 General appearance: Present: no acute distress, well-nourished - EENT Eyes: Present: PERRL ENT: hearing intact - Neck Neck: Present: supple - Respiratory Respiratory: bilateral: CTA - Cardiovascular Rhythm: regular Heart Sounds: Present: S1 & S2 - Extremities Extremities: no ischemia Peripheral Pulses: within normal limits - Abdominal General gastrointestinal: soft, non-tender, non-distended - Integumentary Integumentary: Present: clear - Psychiatric Psychiatric: agitated - Neurologic Neurologic: CNII-XII intact Results - Labs Labs: Laboratory Last Values POC Glucose 89 (70-105) 09/07/20 06:37 Hemoglobin A1c 5.3 % (4-6) 09/06/20 20:59 Triglycerides 181 mg/dL (2-149) H 09/06/20 20:59 Cholesterol 187 mg/dL (50-199) 09/06/20 20:59 LDL Cholesterol Direct 114 mg/dL (50-130) 09/06/20 20:59 HDL Cholesterol 51 mg/dL (40-59) 09/06/20 20:59 Cholesterol/HDL Ratio 3.66 % 09/06/20 20:59 TSH 1.050 mlU/mL (0.270-4.200) 09/06/20 20:59 Deluna/IV: Voiding Method Toilet Active Medications - Current Medications Current Medications: Generic Name Dose Route Start Last Admin Trade Name Freq PRN Reason Stop Dose Admin Acetaminophen 650 mg 09/08/20 16:28 09/08/20 16:55 Tylenol PO 650 mg Q6H PRN Administration Pain, Mild (1-3) Bupropion HCl 150 mg 09/08/20 10:00 09/11/20 11:23 Wellbutrin PO 150 mg DAILY KYLER Administration Divalproex Sodium 500 mg 09/07/20 13:00 09/11/20 11:[address] PO 500 mg BID KYLER Administration Folic Acid 1 mg 09/08/20 16:00 09/11/20 11:24 Folvite PO 1 mg QDAY KYLER Administration Gabapentin 600 mg 09/07/20 22:00 09/11/20 11:22 Gabapentin PO 600 mg BID KYLER Administration Lisinopril 10 mg 09/08/20 10:00 09/11/20 11:20 Zestril PO 10 mg DAILY KYLER Administration Melatonin 10 mg 09/08/20 22:00 09/10/20 20:59 Melatonin PO 10 mg QHS KYLER Administration Mirtazapine 15 mg 09/08/20 22:00 09/10/20 21:00 Remeron PO 15 mg QHS KYLER Administration Multivitamins 1 each 09/08/20 16:00 09/11/20 11:23 Theragran Tab PO 1 each QDAY KYLER Administration Olanzapine 5 mg 09/08/20 22:00 09/10/20 21:00 Zyprexa PO 5 mg QHS KYLER Administration Prazosin HCl 1 mg 09/07/20 22:00 09/10/20 20:59 Prazosin PO 1 mg QHS KYLER Administration Risperidone 1 mg 09/08/20 10:00 09/11/20 11:23 Risperdal PO 1 mg BID KYLER Administration Thiamine HCl 100 mg 09/08/20 16:00 09/11/20 11:23 Vitamin B-1 PO 100 mg QDAY KYLER Administration Trazodone HCl 50 mg 09/06/20 22:00 09/10/20 20:59 Desyrel PO 50 mg QHS KYLER Administration
[2020-09-11] MEDS: traZODone 50 MG TAB PO SCH (21:39)
[2020-09-11] MEDS: MIRTAZAPINE 15 MG TAB PO SCH (21:39)
[2020-09-11] MEDS: MELATONIN 5 MG TAB PO SCH (21:39)
[2020-09-11] MEDS: PRAZOSIN 1 MG CAP PO SCH (21:40)
--- NOTE | 2020-09-12 07:42 | Progress Note ---
Subjective Date of service: 09/12/20 Principal diagnosis: Schizoaffective Subjective Comment: Per Psych Nurse:pt spent the evening in activity room watching television, alert and oriented x4, calm and cooperative, able to make needs known, appropriate on the unit, stable mood, bright affect, medication compliant, good appetite, self care, denies SI/HI, denies A/V/H, no pain reported, no distress noted, will continue to monitor [id number] for safety Psych Progress HPI Patient seen this AM, reports he is doing alright, says he only hears voices or feels in bad mood when he is angry about something but not at the moment. He endorses straightening some things out with his and also speaking with the nephrology social worker about wanting to go to [place] for snf PHP program. Patient also states that he feels bug crawling on him, says he is used to it because its not something new, he denies suicidal thoughts. Reason for continuing inpatient treatment: Recent medication changes, will continue to observe for mood stability, medication tolerance, and medication side effects. Review of Symptoms: Constitutional: Negative for weight loss ENT: Negative for stridor Respiratory: Negative for cough or hemoptysis All other systems reviewed and are negative MENTAL STATUS EXAMINATION General Appearance and Behavior: Age appropriate,good hygiene, wearing appropriate clothes,good eye contact, cooperative irritable with questioning. Cooperation: Participating, Hostile Psychomotor Behavior: unremarkable and within normal limits Mood: "good" Affect and affective range:congruent with mood Thought Process: illogical, Thought Content: tactile sensations, Intellectual Functioning: Average Suicidal Ideation: Denies Homicidal Ideation: Denies HI Impulse Control: unimpaired Insight and Judgment: Improved insight and judgment Memory: Normal Attention: Normal Orientation: Alert, oriented Treatment Plan Assessment and Plan - Patient Problems (1) Schizoaffective disorder Current Visit: Yes Status: Acute (2) Bipolar disorder Current Visit: No Status: Acute Continue current medications Patient admitted for inpatient psychiatric evaluation, medication adjustment and close monitoring The patient's behavior, mood, sleep and appetite will be closely monitored. Patient enrolled in individual and group therapeutic sessions and encouraged to attend. Patient provided with a safe and structured environment. Patient's physical health needs will be addressed by the Hospitalist. Hospitalist Consulted Labs including CBC, CMP, Lipid profile and Hemoglobin A1C levels ordered for baseline reference Social Assessment will be completed and the Lithographing Machine Operator will work with patient and family to ensure a suitable and safe disposition Medication adjustment will be made as clinically indicated Usual Wellness Hindu/Preservation: - Start Trazodone 50 mg po QHS & 50 mg po QHS PRN between 10 PM & 2 AM for insomnia - Start Melatonin 5 mg po QHS to promote circadian rhythm - Start Blessing-3 for brain health, reduce impulsivity, and as adjunctive treatment for mood disorder, continue upon discharge given overall benefits. - Start B1 prophylaxis with 200 mg po for 5 days The patient agreed on the treatment plan, understood the risk, benefit, alternative treatment, potential consequence of no treatment, and gave informed consent. Initial Certification Inpatient psych services: I certify that the inpatient psychiatric services are required for treatment that could reasonably be expected to improve the patient's condition. Estimated days: 2 Post hospital care: primary care provider, psychiatric provider Assessment and Plan - Patient Problems (1) Schizoaffective disorder Current Visit: Yes Status: Acute (2) Bipolar disorder Current Visit: No Status: Acute Medications and Allergies Allergies Allergy/AdvReac Type Severity Reaction Status Date / Time quetiapine [From Seroquel] Allergy Unknown Verified 12/02/19 11:28 Home Medications Medication Instructions Recorded Confirmed Last Taken Type predniSONE [Deltasone] 10 mg PO .TAPER #21 tab 12/02/19 Unknown Rx traMADoL [Ultram] 50 mg PO Q6HR PRN #12 tablet 12/02/19 09/07/20 Unknown Rx Depakote ER 500 mg PO BID 09/05/20 09/07/20 Unknown History Gabapentin 600 mg PO BID 09/05/20 09/07/20 Unknown History Lisinopril 10 mg PO DAILY 09/05/20 09/07/20 Unknown History RisperDAL 0.5 mg PO BID 09/05/20 09/07/20 Unknown History Wellbutrin 150 mg PO DAILY 09/05/20 09/07/20 Unknown History Prazosin 1 mg PO HS 09/07/20 09/07/20 Unknown History Active Meds: Active Medications Acetaminophen (Tylenol) 650 mg PO Q6H PRN PRN Reason: Pain, Mild (1-3) Last Admin: 09/08/20 16:55 Dose: 650 mg Documented by: Bupropion HCl (Wellbutrin) 150 mg PO DAILY [facility] Last Admin: 10/19/20 11:23 Dose: 150 mg Documented by: Divalproex Sodium (Depakote Dr) 500 mg PO BID [facility] Last Admin: 09/11/20 21:39 Dose: 500 mg Documented by: Folic Acid (Folvite) 1 mg PO QDAY [facility] Last Admin: 09/11/20 11:24 Dose: 1 mg Documented by: Gabapentin (Gabapentin) 600 mg PO BID [facility] Last Admin: 09/11/20 21:40 Dose: 600 mg Documented by: Lisinopril (Zestril) 10 mg PO DAILY [facility] Last Admin: 09/11/20 11:20 Dose: 10 mg Documented by: Melatonin (Melatonin) 10 mg PO QHS [facility] Last Admin: 09/11/20 21:39 Dose: 10 mg Documented by: Mirtazapine (Remeron) 15 mg PO QHS [facility] Last Admin: 09/11/20 21:39 Dose: 15 mg Documented by: Multivitamins (Theragran Tab) 1 each PO QDAY [facility] Last Admin: 09/11/20 11:23 Dose: 1 each Documented by: Olanzapine (Zyprexa) 5 mg PO QHS [facility] Last Admin: 09/11/20 21:39 Dose: 5 mg Documented by: Prazosin HCl (Prazosin) 1 mg PO QHS [facility] Last Admin: 09/11/20 21:40 Dose: 1 mg Documented by: Risperidone (Risperdal) 1 mg PO BID [facility] Last Admin: 09/11/20 21:39 Dose: 1 mg Documented by: Thiamine HCl (Vitamin B-1) 100 mg PO QDAY [facility] Last Admin: 09/11/20 11:23 Dose: 100 mg Documented by: Trazodone HCl (Desyrel) 50 mg PO QHS [facility] Last Admin: 09/11/20 21:39 Dose: 50 mg Documented by: Results - Results Labs/Vitals: Laboratory Last Values POC Glucose 89 (70-105) 09/07/20 06:37 Hemoglobin A1c 5.3 % (4-6) 09/06/20 20:59 Triglycerides 181 mg/dL (2-149) H 09/06/20 20:59 Cholesterol 187 mg/dL (50-199) 09/06/20 20:59 LDL Cholesterol Direct 114 mg/dL (50-130) 09/06/20 20:59 HDL Cholesterol 51 mg/dL (40-59) 09/06/20 20:59 Cholesterol/HDL Ratio 3.66 % 09/06/20 20:59 TSH 1.050 mlU/mL (0.270-4.200) 09/06/20 20:59 Last Vital Signs Temp 98.8 F 09/11/20 22:00 Pulse 62 09/11/20 22:00 Resp 18 09/11/20 22:00 BP 112/65 09/11/20 22:00 Pulse Ox 97 09/11/20 22:00
[2020-09-12 09:41] VITALS: BP 125/76
[2020-09-12] MEDS ORDERED: risperiDONE 1 MG TAB PO SCH (10:00)
--- NOTE | 2020-09-12 10:49 | Discharge Summary ---
Providers - Providers Date of Admission: 09/06/20 18:30 Date of discharge: 09/12/20 Attending physician: HILARY PALMER MD 09/06/20 18:07 Consult to Physician [CONS] Routine Comment: Consulting Provider: CACHORRO WAN Physician Instructions: Reason For Exam: manage medical conditions Primary care physician: FRESH FOOD MANAGER Hospitalization Reason for admission: Danger to self Condition: Good Hospital course: The patient was provided inpatient psychiatric treatment with safe and supportive environment, group/individual therapy, psychiatric medication, medication adjustment, adverse effect monitor, medical evaluation, medical treatment, social service assessment, social support meeting, placement as sessment and psycho-education. The patients mood, cognition, behavior, motivation, compliance to treatment and appreciation on family/social support are improved and stabilized. At the time of discharge, the patient had no suicidal ideas, no homicidal ideas, no aggressive thoughts, no endangering behavior and no debilitating adverse effects. The patient agareed on the treatment plan, understood the risk, benefit, alternative treatment, potential consequence of no treatment, and gave informed consent. Disposition: DC-01 TO HOME OR SELFCARE Allergies/Adverse Reactions: Allergies quetiapine [From Seroquel] Allergy (Verified 12/02/19 11:28) Unknown Vital Signs: Last Vital Signs Temp 97.9 F 09/12/20 09:12 Pulse 66 09/12/20 09:12 Resp 18 09/12/20 09:12 BP 125/76 09/12/20 09:12 Pulse Ox 99 09/12/20 09:12 Last Lab: Laboratory Last Values POC Glucose 89 (70-105) 09/07/20 06:37 Hemoglobin A1c 5.3 % (4-6) 09/06/20 20:59 Triglycerides 181 mg/dL (2-149) H 09/06/20 20:59 Cholesterol 187 mg/dL (50-199) 09/06/20 20:59 LDL Cholesterol Direct 114 mg/dL (50-130) 09/06/20 20:59 HDL Cholesterol 51 mg/dL (40-59) 09/06/20 20:59 Cholesterol/HDL Ratio 3.66 % 09/06/20 20:59 TSH 1.050 mlU/mL (0.270-4.200) 09/06/20 20:59 - Discharge Diagnoses (1) Schizoaffective disorder Status: Acute (2) Bipolar disorder Status: Acute Core Measure Documentation - Palliative Care Palliative Care/ Comfort Measures: Not Applicable - Core Measures Any of the following diagnoses?: none Exam - Constitutional Vitals: Temp Pulse Resp BP Pulse Ox 97.9 F 66 18 125/76 99 09/12/20 09:12 09/12/20 09:12 09/12/20 09:12 09/12/20 09:12 09/12/20 09:12 General appearance: Present: no acute distress - EENT Eyes: Present: PERRL, EOM intact ENT: hearing intact, clear oral mucosa - Neck Neck: Present: supple, normal ROM - Respiratory Respiratory effort: normal - Abdominal Male genitourinary: Present: normal - Integumentary Integumentary: Present: clear, warm, dry Plan Activity: no restrictions Care Plan Goals: Goals: Maintain good and stable mental health. Plan of Treatment: The patient should be compliant with medications, not to use drugs and not to drink alcohol. The patient understands that if suicidal ideas, homicidal ideas, or any endangering thoughts arise, the patient should immediately seek for emergent assistance including but not limited to crisis hot line and emergency room. Follow up with outpatient Psychiatrist and PCP within 7 - 14 days of discharge. Follow up with: PRIMARY CARE,MD [Primary Care Provider] - 7 Days Prescriptions: Mirtazapine [Remeron 15mg TAB] 15 mg PO QHS #30 tablet OLANzapine [ZyPREXA] 5 mg PO QHS #[address] [Depakote Dr] 500 mg PO BID #30 tablet risperiDONE [RisperDAL] 2 mg PO BID #60 tablet buPROPion [Wellbutrin] 150 mg PO DAILY #30 tablet
[2020-09-12] MEDS: buPROPion 75 MG TAB PO SCH (11:18)
[2020-09-12] MEDS: GABAPENTIN 300 MG CAP PO SCH (11:18)
[2020-09-12] MEDS: FOLIC ACID 1 MG TAB PO SCH (11:18)
[2020-09-12] MEDS: MULTIVITAMINS ,THERAPEUTIC TAB PO SCH (11:19)
[2020-09-12] MEDS: THIAMINE 100 MG TAB PO SCH (11:20)
[2020-09-12] MEDS: DIVALPROEX DR 500 MG TAB PO SCH (11:20)
[2020-09-12] MEDS: ACETAMINOPHEN 325 MG TAB PO PRN (11:30)
[2020-09-12] MEDS: LISINOPRIL 10 MG TAB PO SCH (11:50)
== END 2020-09-12 12:00 | disposition home or self-care (01) | DRG 885 ==
LOC: 3A 16:18 → UNDOADMIN 16:18 → 5A 18:30
PROVIDERS: ADMIT Psychiatry & Neurology Psychiatry; ATTEND Psychiatry & Neurology Psychiatry
DX: F25.9 Schizoaffective disorder, unspecified (principal); R45.851 Suicidal ideations; F31.9 Bipolar disorder, unspecified; F19.94 Other psychoactive substance use, unspecified with psychoactive substance-induced mood disorder; I10 Essential (primary) hypertension; E11.9 Type 2 diabetes mellitus without complications; E03.9 Hypothyroidism, unspecified; Z83.3 Family history of diabetes mellitus; Z82.49 Family history of ischemic heart disease and other diseases of the circulatory system; Z88.8 Allergy status to other drugs, medicaments and biological substances; F17.200 Nicotine dependence, unspecified, uncomplicated; Z79.899 Other long term (current) drug therapy
CPT/HCPCS: 36415; 80048; 80061; 80307; 80320; 81001; 82962; 83036; 84443; 85007; 85025; G0378; G0480; U0003-CS